=== PATIENT | male | born 1990 ===

== ENCOUNTER 2017-10-12 13:30 | Observation (INO) | payer OTHER ==
[2017-10-12] MEDS ORDERED: Iohexol 240 (50 ml) PO ONE (14:14)
[2017-10-12] MEDS ORDERED: Sodium Chloride 0.9% 1,000 ML IV STA (14:14)
--- NOTE | 2017-10-12 14:17 | ED PDOC ---
HPI: Abdomen Time Seen by Provider: 10/12/17 13:37 Chief Complaint (Nursing): Abdominal Pain Chief Complaint (Provider): abdominal pain and fever History Per: Patient History/Exam Limitations: no limitations Onset/Duration Of Symptoms: Days (x4) Current Symptoms Are (Timing): Constant Additional Complaint(s): Olvin Bell, a 26 year old male patient presents to the Emergency Department complaining of constant abdominal pain and body aches onset four days ago. Patient reports did not take any pain medication. Denies shortness of breath, nausea, vomiting, diarrhea, testicular pain, but notes dysuria. PMD: NO FAMILY PROVIDER Past Medical History Reviewed: Historical Data, Nursing Documentation, Vital Signs Vital Signs: Last Vital Signs Temp 98.0 F 10/12/17 13:54 Pulse 121 H 10/12/17 13:54 Resp 16 10/12/17 13:54 BP 145/76 10/12/17 13:54 Pulse Ox 100 10/12/17 17:52 - Medical History PMH: No Chronic Diseases - Surgical History Surgical History: No Surg Hx - Family History Family History: States: Unknown Family Hx - Allergies Allergies/Adverse Reactions: Allergies Allergy/AdvReac Type Severity Reaction Status Date / Time No Known Allergies Allergy Verified 10/12/17 13:53 Review of Systems ROS Statement: Except As Marked, All Systems Reviewed And Found Negative Constitutional: Positive for: Fever, Other (body aches) Cardiovascular: Negative for: Chest Pain Respiratory: Negative for: Shortness of Breath Gastrointestinal: Positive for: Abdominal Pain. Negative for: Nausea, Vomiting , Diarrhea Genitourinary Male: Positive for: Dysuria Physical Exam - Reviewed Nursing Documentation Reviewed: Yes Vital Signs Reviewed: Yes - Physical Exam Appears: Positive for: Well, Non-toxic, No Acute Distress Head Exam: Positive for: ATRAUMATIC, NORMAL INSPECTION, NORMOCEPHALIC Skin: Positive for: Normal Color, Warm, Dry Eye Exam: Positive for: Normal appearance, EOMI, PERRL ENT: Positive for: Normal ENT Inspection Neck: Positive for: Normal, Painless ROM Cardiovascular/Chest: Positive for: Regular Rate, Rhythm. Negative for: Chest Non Tender, Tachycardia Respiratory: Positive for: Normal Breath Sounds. Negative for: Wheezing, Respiratory Distress Gastrointestinal/Abdominal: Positive for: Soft, Tenderness. Negative for: Guarding, Rebound Back: Positive for: Normal Inspection. Negative for: L CVA Tenderness, R CVA Tenderness Extremity: Positive for: Normal ROM. Negative for: Tenderness, Deformity, Swelling Neurologic/Psych: Positive for: Alert, Oriented (x3), Gait - Laboratory Results Result Diagrams: 10/12/17 15:04 10/12/17 15:04 Interpretation Of Abn Labs: 13.3 wbc; 322 wbc - ECG O2 Sat by Pulse Oximetry: 100 (RA) Pulse Ox Interpretation: Normal - CT Scan/US ct Other Rad Studies (CT/US): Read By Radiologist Other Rad Interpretation: pancratitis - Progress ED Course And Treament: 1755: Spoke with Dr. Rice. Will admit. Pancreatitis. Fluids running. LR started. Medical Decision Making Medical Decision Making: Time: 14:14 Initial Plan: --Abd Pelvis PO & IV CT --CMP --Lipase --CBC --Normal Saline 1,000ml IV 1,000mls/hr --Iohexol 50ml PO --Toradol 15mg IVP --Reevaluation Scribe Attestation: Documented by Ashley Patricia, acting as a scribe for Dean Reyes MD Provider Scribe Attestation: All medical record entries made by the Scribe were at my direction and personally dictated by me. I have reviewed the chart and agree that the record accurately reflects my personal performance of the history, physical exam, medical decision making, and the department course for this patient. I have also personally directed, reviewed, and agree with the discharge instructions and disposition. Disposition - Clinical Impression Clinical Impression: Pancreatitis - Patient ED Disposition Is Patient to be Admitted: Yes Counseled Patient/Family Regarding: Studies Performed, Diagnosis - Disposition Disposition Time: 17:30 Condition: FAIR - Pt Status Changed To: Hospital Disposition Of: Observation - POA Present On Arrival: None
[2017-10-12] MEDS ORDERED: Iohexol 240 (50 ml) ONE (14:29)
[2017-10-12 15:13] LABS: BASO # 0.1 K/uL (0.0-0.2); BASO % 0.5 % (0.0-2.0); EOS # 0.2 K/uL (0.0-0.7); EOS % 1.5 % (0.0-4.0); HEMOGLOBIN 14.8 g/dL (12.0-18.0); LYMPH # 1.5 K/uL (1.0-4.3); LYMPH % 10.9 % (20.0-40.0); MEAN CORPUSCULAR HEMOGLOBIN 26.5 pg (27.0-31.0); MEAN CORPUSCULAR HGB CONC 33.9 g/dL (33.0-37.0); MEAN PLATELET VOLUME 8.2 fl (7.2-11.7); MONO # 1.2 K/uL (0.0-0.8); MONO % 8.7 % (0.0-10.0); NEUT # 10.5 K/uL (1.8-7.0); NEUT % 78.4 % (50.0-75.0); RBC 5.58 Mil/uL (4.40-5.90); RED CELL DISTRIBUTION WIDTH 14.2 % (11.5-14.5); WHITE BLOOD COUNT 13.3 K/uL (4.8-10.8)
[2017-10-12 15:22] LABS: ALB/GLOB RATIO 1.2 (1.0-2.1); ALBUMIN 4.7 g/dL (3.5-5.0); ALT/SGPT 36 U/L (21-72); AST/SGOT 23 U/L (17-59); BLOOD UREA NITROGEN 9 mg/dl (9-20); CALCIUM 9.7 mg/dL (8.4-10.2); GFR AFRICAN-AMERICAN > 60; GFR NON-AFRICAN AMERICAN > 60; LIPASE 322 U/L (23-300)
[2017-10-12] MEDS ORDERED: Sodium Chloride 0.9% 50 ML IV ONE (16:46)
[2017-10-12] MEDS ORDERED: Iohexol 300 100 ML IJ ONE (16:46)
--- NOTE | 2017-10-12 17:39 | CT ---
PROCEDURE: CT Abdomen and Pelvis with contrast HISTORY: abd pain COMPARISON: None. TECHNIQUE: Contrast dose: 98 cc Omnipaque 300 Radiation dose: Total exam DLP = 1336.1 mGy-cm. This CT exam was performed using one or more of the following dose reduction techniques: Automated exposure control, adjustment of the mA and/or kV according to patient size, and/or use of iterative reconstruction technique. FINDINGS: LOWER THORAX: Right lower lobe calcified granuloma. Unremarkable. LIVER: Hepatic steatosis. No gross lesion or ductal dilatation. GALLBLADDER AND BILE DUCTS: Unremarkable. PANCREAS: Peripancreatic hazy change and fluid. No gross lesion or ductal dilatation. SPLEEN: Unremarkable. ADRENALS: Unremarkable. No mass. KIDNEYS AND URETERS: Unremarkable. No hydronephrosis. No solid mass. VASCULATURE: Unremarkable. No aortic aneurysm. BOWEL: Unremarkable. No obstruction. No gross mural thickening. APPENDIX: Normal appendix. PERITONEUM: Unremarkable. No free air. LYMPH NODES: Unremarkable. No enlarged lymph nodes. BLADDER: Unremarkable. REPRODUCTIVE: Unremarkable. BONES: No acute fracture. OTHER FINDINGS: None. IMPRESSION: Acute pancreatitis. No evidence of necrosis or organized fluid collection.
[2017-10-12] MEDS: Lactated Ringer's 1,000 ML IV SCH ×2 (18:27→22:50)
[2017-10-12] MEDS ORDERED: Alum-Mag Hydrox-Simethicone Susp (30 mL) PO PRN (18:42)
[2017-10-12 18:52] LABS: BARBITURATES, UR NEGATIVE (NEGATIVE); BENZODIAZEPINES, UR NEGATIVE (NEGATIVE); OPIATES, UR NEGATIVE (NEGATIVE); PHENCYCLIDINE, UR NEGATIVE (NEGATIVE)
--- NOTE | 2017-10-12 18:55 | CP.PCM.HP ---
History of Present Illness - History of Present Illness History of Present Illness: This is a 26 yo male with no significant past medical history who presents to the ED complaining of crampy, dull, severe abdominal pain in the epigastric region radiating to his back. He has never had this pain before. No nausea, vomiting, or diarrhea. No other associated factors. Denies eating anything out of the ordinary. In the ED, the patient was found to have leukocytosis. HD stable but did have tachycardia initially. CT scan shows evidence of acute pancreatitis without evidence of gallstones. Lipase is mildly elevated at 322. No transaminitis or bilirubin elevation. Patient denies recent ETOH usage or drug usage. The patient is to be placed on observation overnight for further workup and management of acute pancreatitis. Present on Admission - Present on Admission Any Indicators Present on Admission: No Review of Systems - Review of Systems Review of Systems: A 12 point ROS was conducted and found to be negative other than what was mentioned in the HPI. Past Patient History - Infectious Disease Hx of Infectious Diseases: None - Past Social History Smoking Status: Never Smoked Alcohol: Occasional Drugs: Denies - PSYCHIATRIC Hx Substance Use: No Meds Allergies/Adverse Reactions: Allergies Allergy/AdvReac Type Severity Reaction Status Date / Time No Known Allergies Allergy Verified 10/12/17 13:53 Physical Exam - Additional Findings Additional findings: Physical exam: Constitutional- cooperative, awake, alert Head- NCAT, PERRL Eye- PERRL, EOMI ENT- normal exam, MMM. Neck- normal inspection, supple, no JVD Respiratory- CTAB, no wheezes rales rhonchi Cardiovascular- RRR, +S1, +S2 no MRG GI/Abdominal-obese, tender to palpation, normal bowel sounds, soft, no mass, no hsm Skin- warm, dry Extremities Exam- normal capillary refill, normal inspection Neurological Exam- alert, awake, oriented Psych- normal mood, normal affect Results - Vital Signs Recent Vital Signs: Last Vital Signs Temp 98.0 F 10/12/17 13:54 Pulse 121 H 10/12/17 13:54 Resp 16 10/12/17 13:54 BP 145/76 10/12/17 13:54 Pulse Ox 100 10/12/17 17:56 - Labs Result Diagrams: 10/12/17 15:04 10/12/17 15:04 Labs: Laboratory Results - last 24 hr 10/12/17 10/12/17 10/12/17 15:04 15:04 18:17 WBC 13.3 H RBC 5.58 Hgb 14.8 Hct 43.5 MCV 78.0 L MCH 26.5 L MCHC 33.9 RDW 14.2 Plt Count 230 MPV 8.2 Neut % (Auto) 78.4 H Lymph % (Auto) 10.9 L [place] % (Auto) 8.7 Eos % (Auto) 1.5 Baso % (Auto) 0.5 Neut # (Auto) 10.5 H Lymph # (Auto) 1.5 [place] # (Auto) 1.2 H Eos # (Auto) 0.2 Baso # (Auto) 0.1 Sodium 141 Potassium 4.0 Chloride 102 Carbon Dioxide 26 Anion Gap 17 BUN 9 Creatinine 0.9 Est GFR ( Amer) > 60 Est GFR (Non-Af Amer) > 60 Random Glucose 95 Calcium 9.7 Total Bilirubin 1.3 AST 23 ALT 36 Alkaline Phosphatase 97 Total Protein 8.5 H Albumin 4.7 Globulin 3.8 Albumin/Globulin Ratio 1.2 Lipase 322 H Urine Opiates Screen Urine Methadone Screen Ur Barbiturates Screen Ur Phencyclidine Scrn Ur Amphetamines Screen U Benzodiazepines Scrn U Oth Cocaine Metabols U Cannabinoids Screen Alcohol, Quantitative < 10 10/12/17 18:17 WBC RBC Hgb Hct MCV MCH MCHC RDW Plt Count MPV Neut % (Auto) Lymph % (Auto) [place] % (Auto) Eos % (Auto) Baso % (Auto) Neut # (Auto) Lymph # (Auto) [place] # (Auto) Eos # (Auto) Baso # (Auto) Sodium Potassium Chloride Carbon Dioxide Anion Gap BUN Creatinine Est GFR ( Amer) Est GFR (Non-Af Amer) Random Glucose Calcium Total Bilirubin AST ALT Alkaline Phosphatase Total Protein Albumin Globulin Albumin/Globulin Ratio Lipase Urine Opiates Screen Negative Urine Methadone Screen Negative Ur Barbiturates Screen Negative Ur Phencyclidine Scrn Negative Ur Amphetamines Screen Negative U Benzodiazepines Scrn Negative U Oth Cocaine Metabols Negative U Cannabinoids Screen Negative Alcohol, Quantitative Assessment & Plan - Assessment and Plan (Free Text) Plan: ASSESSMENT/PLAN 26 yo male admitted for acute pancreatitis of unknown etiology, ddx: ETOH, hyperlipidemia; pt denies recent ETOH use or recent trauma. No evidence of gallstones on CT scan. On no medications. + Leukocytosis - Admit to med/surg - 1 L NS given in ED, continue LR overnight at 200 cc/hour - NPO status with bland diet to be advanced tomorrow AM. - Pain mgmt with Tylenol and Toradol sliding scale - Repeat Labs in AM - Lipid profile - HGA1C - Follow up alcohol level/urine toxicology screen - likely discharge tomorrow if he tolerates his diet without
[2017-10-13] MEDS: Lactated Ringer's 1,000 ML IV SCH (06:00)
[2017-10-13 07:03] LABS: MEAN CELL VOLUME 79.7 fl (80.0-94.0); MEAN CORPUSCULAR HEMOGLOBIN 26.2 pg (27.0-31.0); MEAN CORPUSCULAR HGB CONC 32.9 g/dL (33.0-37.0); RBC 4.58 Mil/uL (4.40-5.90); RED CELL DISTRIBUTION WIDTH 13.9 % (11.5-14.5); WHITE BLOOD COUNT 9.5 K/uL (4.8-10.8)
[2017-10-13 07:23] LABS: BLOOD UREA NITROGEN 9 mg/dl (9-20); CALCIUM 8.8 mg/dL (8.4-10.2); GFR AFRICAN-AMERICAN > 60; GFR NON-AFRICAN AMERICAN > 60
[2017-10-13 08:20] VITALS: BP 115/62; PULSE 68; RESP 20; TEMP 98.1; O2SAT 98
[2017-10-13 08:29] LABS: HDL CHOLESTEROL 20 MG/DL (30-70)
[2017-10-13 08:40] LABS: LDL CHOLESTEROL 31 mg/dL (0-129)
--- NOTE | 2017-10-13 08:40 | CP.PCM.DIS ---
Provider - Provider Date of Admission: 10/12/17 17:54 Attending physician: Tello Rice DO Primary care physician: none Time Spent in preparation of Discharge (in minutes): 15 Hospital Course - Lab Results Lab Results: Most Recent Lab Values WBC 9.5 K/uL (4.8-10.8) 10/13/17 05:30 RBC 4.58 Mil/uL (4.40-5.90) 10/13/17 05:30 Hgb 12.0 g/dL (12.0-18.0) D 10/13/17 05:30 Hct 36.5 % (35.0-51.0) 10/13/17 05:30 MCV 79.7 fl (80.0-94.0) L 10/13/17 05:30 MCH 26.2 pg (27.0-31.0) L 10/13/17 05:30 MCHC 32.9 g/dL (33.0-37.0) L 10/13/17 05:30 RDW 13.9 % (11.5-14.5) 10/13/17 05:30 Plt Count 180 K/uL (130-400) 10/13/17 05:30 MPV 8.2 fl (7.2-11.7) 10/12/17 15:04 Neut % (Auto) 78.4 % (50.0-75.0) H 10/12/17 15:04 Lymph % (Auto) 10.9 % (20.0-40.0) L 10/12/17 15:04 [place] % (Auto) 8.7 % (0.0-10.0) 10/12/17 15:04 Eos % (Auto) 1.5 % (0.0-4.0) 10/12/17 15:04 Baso % (Auto) 0.5 % (0.0-2.0) 10/12/17 15:04 Neut # (Auto) 10.5 K/uL (1.8-7.0) H 10/12/17 15:04 Lymph # (Auto) 1.5 K/uL (1.0-4.3) 10/12/17 15:04 [place] # (Auto) 1.2 K/uL (0.0-0.8) H 10/12/17 15:04 Eos # (Auto) 0.2 K/uL (0.0-0.7) 10/12/17 15:04 Baso # (Auto) 0.1 K/uL (0.0-0.2) 10/12/17 15:04 Sodium 139 mmol/l (132-148) 10/13/17 05:30 Potassium 3.9 MMOL/L (3.6-5.0) 10/13/17 05:30 Chloride 101 mmol/L (98-107) 10/13/17 05:30 Carbon Dioxide 31 mmol/L (22-30) H 10/13/17 05:30 Anion Gap 11 (10-20) 10/13/17 05:30 BUN 9 mg/dl (9-20) 10/13/17 05:30 Creatinine 0.9 mg/dl (0.8-1.5) 10/13/17 05:30 Est GFR ( Amer) > 60 10/13/17 05:30 Est GFR (Non-Af Amer) > 60 10/13/17 05:30 Random Glucose 104 mg/dL (75-110) 10/13/17 05:30 Calcium 8.8 mg/dL (8.4-10.2) 10/13/17 05:30 Total Bilirubin 1.3 mg/dl (0.2-1.3) 10/12/17 15:04 AST 23 U/L (17-59) 10/12/17 15:04 ALT 36 U/L (21-72) 10/12/17 15:04 Alkaline Phosphatase 97 U/L (38-126) 10/12/17 15:04 Total Protein 8.5 G/DL (6.3-8.2) H 10/12/17 15:04 Albumin 4.7 g/dL (3.5-5.0) 10/12/17 15:04 Globulin 3.8 gm/dL (2.2-3.9) 10/12/17 15:04 Albumin/Globulin Ratio 1.2 (1.0-2.1) 10/12/17 15:04 Triglycerides 553 mg/DL (0-149) H 10/13/17 05:30 Cholesterol 172 mg/dL (0-199) 10/13/17 05:30 HDL Cholesterol 20 MG/DL (30-70) L 10/13/17 05:30 Lipase 107 U/L (23-300) 10/13/17 05:30 Urine Opiates Screen Negative (NEGATIVE) 10/12/17 18:17 Urine Methadone Screen Negative (NEGATIVE) 10/12/17 18:17 Ur Barbiturates Screen Negative (NEGATIVE) 10/12/17 18:17 Ur Phencyclidine Scrn Negative (NEGATIVE) 10/12/17 18:17 Ur Amphetamines Screen Negative (NEGATIVE) 10/12/17 18:17 U Benzodiazepines Scrn Negative (NEGATIVE) 10/12/17 18:17 U Oth Cocaine Metabols Negative (NEGATIVE) 10/12/17 18:17 U Cannabinoids Screen Negative (NEGATIVE) 10/12/17 18:17 Alcohol, Quantitative < 10 mg/dl (0-10) 10/12/17 18:17 - Hospital Course Hospital Course: 26 yo male with no significant past medical history,presented to the ED complaining of crampy, dull, severe abdominal pain in the epigastric region radiating to his back. He has never had this pain before. No nausea, vomiting, or diarrhea. No other associated factors. Denies eating anything out of the ordinary.patient states that this pain started on Saturday ( 6 days ago ) but could not come to hospital because his work. In the ED, found to have leukocytosis 13.3 , lipase 322. CT scan shows evidence of acute pancreatitis without evidence of gallstones. No transaminitis or bilirubin elevation. Patient denies ETOH abuse . His lipid profile was normal,denies any medication usage or drug usage. The patient was placed under observation in med/surg , started on IVF . Clinically patient improved ,pain resolved , tolerating Po intake , lipase normalized and WBC trended down to 9 K. Will discharge patient home in stable conditions Counselled to avoid ETOH use Return to hospital if symptoms worsen Dx Acute pancreatitis of unclear etiology Discharge Exam - Head Exam Head Exam: ATRAUMATIC, NORMAL INSPECTION, NORMOCEPHALIC - Eye Exam Eye Exam: EOMI, Normal appearance, PERRL Pupil Exam: NORMAL ACCOMODATION - ENT Exam ENT Exam: Mucous Membranes Moist, Normal Exam - Neck Exam Neck exam: Full Rom, Normal Inspection - Respiratory Exam Respiratory Exam: Clear to PA & Lateral, NORMAL BREATHING PATTERN. absent: Rales, Rhonchi, Wheezes - Cardiovascular Exam Cardiovascular Exam: REGULAR RHYTHM, RRR, +S1, +S2. absent: JVD - GI/Abdominal Exam GI & Abdominal Exam: Normal Bowel Sounds, Soft. absent: Distended, Guarding, Rebound, Tenderness - Rectal Exam Rectal Exam: Deferred - Extremities Exam Extremities exam: full ROM, normal inspection, pedal pulses present - Back Exam Back exam: NORMAL INSPECTION - Neurological Exam Neurological exam: Alert, CN II-XII Intact, Oriented x3, Reflexes Normal - Psychiatric Exam Psychiatric exam: Normal Affect, Normal Mood - Skin Skin Exam: Dry, Intact, Normal Color, Warm Discharge Plan - Follow Up Plan Condition: STABLE Disposition: HOME/ ROUTINE Patient education suggested?: Yes Instructions: Pancreatitis (DC) Referrals: [facility] [place] [Outside]
== END 2017-10-13 11:00 | disposition home or self-care (01) ==
LOC: H.ER 13:30 → H.ERHOLD 17:54 → H.MEDSURG1 20:18
PROVIDERS: ADMIT Internal Medicine; ATTEND Internal Medicine
DX: K85.90 Acute pancreatitis without necrosis or infection, unspecified (principal)
CPT/HCPCS: 36415; 74177; 80048; 80053; 80061; 80320; 80324; 80345; 80346; 80349; 80353; 80358; 80361; 83690; 83992; 85025; 85027; 96374; 99283; G0378; J1885; J7040; J7120; Q9966; Q9967

== ENCOUNTER 2017-12-03 11:07 | Emergency (ER) | payer SELFPAY, OTHER ==
[2017-12-03 11:19] VITALS: BP 122/66; PULSE 98
[2017-12-03 12:01] VITALS: RESP 18; TEMP 96; O2SAT 99
--- NOTE | 2017-12-03 12:27 | ED PDOC ---
Lower Extremity Pain/Injury Time Seen by Provider: 12/03/17 12:07 Chief Complaint (Nursing): Lower Extremity Problem/Injury History/Exam Limitations: no limitations Onset/Duration Of Symptoms: Days (x 3) Current Symptoms Are (Timing): Still Present Additional Complaint(s): Mr. Bah is a 27 year old male, with a history of gout and pancreatitis, who presents to the ED for bilateral plantar foot pain x 3 days. No injuries or falls. Does not play sports. Patient reports pain is intermittent or when he bears weight. PMD: No Family Provider Past Medical History Reviewed: Historical Data, Nursing Documentation, Vital Signs Vital Signs: Last Vital Signs Temp 96.0 F L 12/03/17 11:59 Pulse 98 H 12/03/17 11:59 Resp 18 12/03/17 11:59 BP 122/66 12/03/17 11:59 Pulse Ox 99 12/03/17 11:59 - Medical History PMH: Pancreatitis Denies: Chronic Kidney Disease Other PMH: Gout - Surgical History Other surgeries: knee toe surgery - Family History Family History: States: Unknown Family Hx - Social History Alcohol: Occasional - Home Medications Home Medications: Ambulatory Orders Medication Instructions Recorded No Known Home Med 10/12/17 - Allergies Allergies/Adverse Reactions: Allergies Allergy/AdvReac Type Severity Reaction Status Date / Time No Known Allergies Allergy Verified 10/12/17 13:53 Review of Systems ROS Statement: Except As Marked, All Systems Reviewed And Found Negative Musculoskeletal: Positive for: Foot Pain (bilateral plantar foot pain) Physical Exam - Reviewed Nursing Documentation Reviewed: Yes Vital Signs Reviewed: Yes - Physical Exam Extremity: Positive for: Normal ROM (Full ROM ), Capillary Refill (less than 2 seconds). Negative for: Calf Tenderness, Deformity, Swelling - ECG O2 Sat by Pulse Oximetry: 99 (RA) Pulse Ox Interpretation: Normal Medical Decision Making Medical Decision Making: Time: 12:29 Impression(s): Foot Pain, Early gout flare up vs. Sprain vs. Plantar Fasciitis Plan: - Foot X-Ray Time: 13:06 Foot X-Ray FINDINGS: BONES: Right Foot: No acute fracture. Left Foot: No acute fracture. JOINTS: Right Foot: Unremarkable. Left Foot: Unremarkable. SOFT TISSUES: Right Foot: Normal. Left Foot: Normal. OTHER FINDINGS: Small inferior plantar calcaneal spurs. IMPRESSION: No demonstrated fracture or dislocation. Bilateral heel spurs. Upon provider evaluation patient is medically stable, and requires no further treatment in the ED at this time. Patient will be discharged and to need follow up with primary doctor in 1-2 days as well as podiatry. Counseling was provided and all questions were answered regarding diagnosis. There is agreement to discharge plan. Return if symptoms persist or worsen. Scribe Attestation: Documented by Tello Mcghee, acting as a scribe for Candida Barreto MD Provider Scribe Attestation: All medical record entries made by the Scribe were at my direction and personally dictated by me. I have reviewed the chart and agree that the record accurately reflects my personal performance of the history, physical exam, medical decision making, and the department course for this patient. I have also personally directed, reviewed, and agree with the discharge instructions and disposition. Disposition - Clinical Impression Clinical Impression: Foot pain, bilateral - Patient ED Disposition Is Patient to be Admitted: No - Disposition Referrals: [facility] [Outside] [facility] [Outside] [facility] [Outside] Disposition: Routine/Home Disposition Time: 15:26 Condition: IMPROVED Additional Instructions: follow up with your primary doctor in 1-2 days as well as podiatry return to the ED with any worsening or concerning symptoms Instructions: Heel Spurs (DC), Foot Sprain (DC) Forms: [employer] (Irish) Print Language: [place]
--- NOTE | 2017-12-03 13:08 | RAD ---
PROCEDURE: Bilateral Feet Radiographs. HISTORY: bilateral foot pain COMPARISON: None. FINDINGS: BONES: Right Foot: No acute fracture. Left Foot: No acute fracture. JOINTS: Right Foot: Unremarkable. Left Foot: Unremarkable. SOFT TISSUES: Right Foot: Normal. Left Foot: Normal. OTHER FINDINGS: Small inferior plantar calcaneal spurs. IMPRESSION: No demonstrated fracture or dislocation. Bilateral heel spurs.
== END 2017-12-03 16:55 | disposition home or self-care (01) ==
LOC: H.ER 11:07
DX: M79.672 Pain in left foot (principal); M79.671 Pain in right foot; M77.31 Calcaneal spur, right foot; M77.32 Calcaneal spur, left foot

== ENCOUNTER 2018-01-21 14:51 | Inpatient (IN) | payer SELFPAY ==
[2018-01-21] MEDS ORDERED: Sodium Chloride 0.9% 1,000 ML IV STA (15:21)
[2018-01-21 15:58] LABS: VENOUS BLOOD GAS BASE EXCESS 6.4 mmol/L (0.0-2.0); VENOUS BLOOD GAS PCO2 45 mmHg (40-60); VENOUS BLOOD GAS PO2 24 mm/Hg (30-55); VENOUS BLOOD PH 7.45 (7.32-7.43)
[2018-01-21] MEDS ORDERED: Dextrose 5%/0.9% NS 1,000 ML IV SCH (16:00)
--- NOTE | 2018-01-21 16:25 | ED PDOC ---
HPI: Abdomen Time Seen by Provider: 01/21/18 15:19 Chief Complaint (Nursing): Abdominal Pain Chief Complaint (Provider): Abdominal Pain History Per: Patient History/Exam Limitations: no limitations Onset/Duration Of Symptoms: Days (x3) Current Symptoms Are (Timing): Constant (and worsening) Additional Complaint(s): 27 year old male presents to the emergency department complaining of diffuse, constant but worsening, abdominal pain. He reports a decreased appetite, nausea , and subjective fever yesterday, but denies diarrhea and urinary symptoms. Patient states that he remembers feeling similarly back in November of this year when he had pancreatitis. Also, the patient notes that three days ago, he consumed ten beers. PMD: [place] Past Medical History Reviewed: Historical Data, Nursing Documentation, Vital Signs Vital Signs: Last Vital Signs Temp 98.8 F 01/21/18 21:12 Pulse 92 H 01/21/18 21:12 Resp 16 01/21/18 21:12 BP 131/81 01/21/18 21:12 Pulse Ox 98 01/21/18 21:12 - Medical History PMH: Pancreatitis Denies: Chronic Kidney Disease - Surgical History Surgical History: No Surg Hx - Family History Family History: States: CAD - Social History Current smoker - smoking cessation education provided: Yes (cigars occasionally) Alcohol: Occasional Drugs: Denies - Home Medications Home Medications: Ambulatory Orders Medication Instructions Recorded Unobtainable 01/21/18 - Allergies Allergies/Adverse Reactions: Allergies Allergy/AdvReac Type Severity Reaction Status Date / Time No Known Allergies Allergy Verified 10/12/17 13:53 Review of Systems ROS Statement: Except As Marked, All Systems Reviewed And Found Negative Constitutional: Positive for: Fever (subjective from yesterday), Other Gastrointestinal: Positive for: Nausea, Abdominal Pain (diffuse, constant and worsening), Other (decreased appetite). Negative for: Diarrhea Genitourinary Male: Negative for: Dysuria, Frequency, Incontinence Physical Exam - Reviewed Nursing Documentation Reviewed: Yes Vital Signs Reviewed: Yes - Physical Exam Appears: Positive for: In Acute Distress (mild painiful) Head Exam: Positive for: ATRAUMATIC, NORMOCEPHALIC Skin: Positive for: Warm, Dry ENT: Positive for: Pharynx Is (clear), Other (tacky mucous membranes) Neck: Positive for: Painless ROM, Supple Cardiovascular/Chest: Positive for: Regular Rate, Rhythm. Negative for: Murmur Respiratory: Positive for: Normal Breath Sounds. Negative for: Respiratory Distress Gastrointestinal/Abdominal: Positive for: Soft, Tenderness (diffuse tenderness to palpation). Negative for: Mass, Guarding, Rebound Back: Positive for: Normal Inspection. Negative for: Decreased ROM Extremity: Positive for: Normal ROM. Negative for: Deformity Lymphatic: Negative for: Adenopathy Neurologic/Psych: Positive for: Alert. Negative for: Motor/Sensory Deficits - Laboratory Results Result Diagrams: 01/21/18 16:11 01/21/18 16:11 - ECG O2 Sat by Pulse Oximetry: 97 (RA) Pulse Ox Interpretation: Normal Medical Decision Making Medical Decision Making: Time: 15:19 Initial Impression: abdominal pain DDx includes but is not limited to: pancreatitis, gastritis, colitis, dehydration Initial Plan: --Type and Screen --VBG --Alcohol Serum --Amylase --CMP --Drug Screen --LDH --Lipase --Magnesium --Phosphorus --ED Urine dipstick --CBC with differential --PT / PTT --Dextrose 1000ml --Morphine 4mg IVP --Sodium Chloride 0.9% 1000ml IV --Blood Culture --Abdomen Complete US 15:51 Urine sample showed trace ketones, small amounts of blood, and small amounts of protein 17:40 US Abd FINDINGS: LIVER: GALLBLADDER: COMMON BILE DUCT: PACREAS: RIGHT KIDNEY: LEFT KIDNEY: Measures 5.7 x 6.1 x 11.9 cm. Normal echogenicity. No calculus, mass, or hydronephrosis SPLEEN: Normal size AORTA: No aneurysmal dilation IVC: Unremarkable OTHER FINDINGS: None IMPRESSION: No acute findings related to / accounting for the clinical presentation Additional benign and / or incidental findings described above No significant interval change compared to the prior examination(s) 18:45 Labs demonstrate pancreatitis and mild elevation of bilirubin. Discussed with family practice resident who came down to see patient. Patient will be hospitalized for pancreatitis, abdominal pain, and high triglycerides Scribe Attestation: Documented by Fatimah Romero, acting as a scribe for Ann Grove MD Provider Scribe Attestation: All medical entries made by the Scribe were at my direction and personally dictated by me. I have reviewed the chart and agree that the record accurately reflects my personal performance of the history, physical exam, medical decision making, and the department course for this patient. I have also personally directed, reviewed, and agree with the discharge instructions and disposition. Disposition - Clinical Impression Clinical Impression: Abdominal pain, Pancreatitis, High blood triglycerides - Disposition Disposition Time: 18:00 Condition: FAIR - Pt Status Changed To: Hospital Disposition Of: Observation - POA Present On Arrival: None
[2018-01-21 16:32] LABS: BARBITURATES, UR NEGATIVE (NEGATIVE); BENZODIAZEPINES, UR NEGATIVE (NEGATIVE); OPIATES, UR NEGATIVE (NEGATIVE); PHENCYCLIDINE, UR NEGATIVE (NEGATIVE)
[2018-01-21 16:34] LABS: BASO # 0.1 K/uL (0.0-0.2); BASO % 0.6 % (0.0-2.0); EOS # 0.1 K/uL (0.0-0.7); EOS % 0.7 % (0.0-4.0); HEMOGLOBIN 15.8 g/dL (12.0-18.0); LYMPH # 1.2 K/uL (1.0-4.3); LYMPH % 11.9 % (20.0-40.0); MEAN CELL VOLUME 77.2 fl (80.0-94.0); MEAN CORPUSCULAR HEMOGLOBIN 27.6 pg (27.0-31.0); MEAN CORPUSCULAR HGB CONC 35.8 g/dL (33.0-37.0); MEAN PLATELET VOLUME 8.3 fl (7.2-11.7); MONO # 0.7 K/uL (0.0-0.8); MONO % 7.3 % (0.0-10.0); NEUT # 7.8 K/uL (1.8-7.0); NEUT % 79.5 % (50.0-75.0); NRBC % 0.4 % (0.0-0.0); RBC 5.71 Mil/uL (4.40-5.90); RED CELL DISTRIBUTION WIDTH 15.6 % (11.5-14.5); WHITE BLOOD COUNT 9.8 K/uL (4.8-10.8)
[2018-01-21 16:38] LABS: PARTIAL THROMBOPLASTIN TIME 33.6 Seconds (25.6-37.1); PROTHROMBIN TIME 11.3 Seconds (9.8-13.1)
[2018-01-21 17:04] LABS: CALCIUM 8.5 mg/dL (8.4-10.2); GFR AFRICAN-AMERICAN > 60; GFR NON-AFRICAN AMERICAN > 60
[2018-01-21 17:27] LABS: LIPASE 355 U/L (23-300)
[2018-01-21 17:37] LABS: ALB/GLOB RATIO 0.9 (1.0-2.1); ALBUMIN 4.1 g/dL (3.5-5.0); ALT/SGPT 35 U/L (21-72); AMYLASE 78 U/L (30-110); AST/SGOT 66 U/L (17-59); BLOOD UREA NITROGEN 13 mg/dl (9-20)
--- NOTE | 2018-01-21 17:41 | US ---
HISTORY: RUQ pain h/o pancreatitis COMPARISON: 01/04/2018 abdominal ultrasound TECHNIQUE: Sonographic evaluation of the abdomen. FINDINGS: LIVER: Measures 18.3 cm. Hepatopedal blood flow. Fatty infiltration manifest ultrasonographically as increased echogenicity of the liver parenchyma. No mass. No intrahepatic bile duct dilatation. GALLBLADDER: Gallstones are not identified. Stable echogenic focus without shadowing 5 x 9 mm likely gallbladder polyp. COMMON BILE DUCT: Measures 3.8 mm. No stones. No dilatation. PANCREAS: Unremarkable as visualized. No mass. No ductal dilatation. RIGHT KIDNEY: Measures 5.2 x 5.3 x 10.9cm. Normal echogenicity. No calculus, mass, or hydronephrosis. LEFT KIDNEY: Measures 5.7 x 6.1 x 11.9cm. Normal echogenicity. No calculus, mass, or hydronephrosis. SPLEEN: Normal in size and contour. No mass. AORTA: No aneurysmal dilatation. IVC: Unremarkable. OTHER FINDINGS: None. IMPRESSION: No acute findings related to/accounting for the clinical presentation. Additional benign and/or incidental findings described above. No significant interval change compared to the prior examination(s).
--- NOTE | 2018-01-21 18:56 | CP.PCM.HP ---
History of Present Illness - History of Present Illness History of Present Illness: Hx taken from patient and medical records Full code PMD: Dr Bear([facility]) 27 y/o M with PMhx of hypertriglyceridemia was sent from clinic today with c/o abd pain for 3 days associated with nausea. Patient had episode of acute pancreatitis on 10/2017 and outpatient triglycerides level 1 month ago =1770. Patient is not on any medication therapy at this time and admits not being compliant with diet. Pain started 3 days ago, diffuse, no radiation, intermittent, but worse since Yesterday. Admit nausea at times. Denies vomiting , diarrhea, changes in urination, fever. Patient has no other complains. Denies hx of ETOH abuse and patient is not taking any medications at this time. ED course CBC unremarkable CMP: AST 66 Lpase: 355 LDH: 1205 UTox neg. Abd US: No acute findings related to / accounting for the clinical presentation. No significant interval change compared to the prior examination(s ) (Please see full report) NS 1L bolus MOrphine 4mg IV once Protonix 40 mg once PMHx: Hypertriglyceridemia FHx: Hyperlipidemia, DM SHx: Social ETOH and Tobacco. Denies drugs NKDA Present on Admission - Present on Admission Any Indicators Present on Admission: No Review of Systems - Review of Systems All systems: reviewed and no additional remarkable complaints except (Those noted on HPI) Past Patient History - Infectious Disease Hx of Infectious Diseases: None - Past Medical History & Family History Past Medical History?: No - Past Social History Alcohol: Occasional Drugs: Denies - CARDIAC Hx Cardiac Disorders: No - PULMONARY Hx Respiratory Disorders: No - NEUROLOGICAL Hx Neurological Disorder: No - HEENT Hx HEENT Problems: No - RENAL Hx Chronic Kidney Disease: No - ENDOCRINE/METABOLIC Hx Endocrine Disorders: No - HEMATOLOGICAL/ONCOLOGICAL Hx Blood Disorders: No - INTEGUMENTARY Hx Dermatological Problems: No - MUSCULOSKELETAL/RHEUMATOLOGICAL Hx Musculoskeletal Disorders: No Hx Falls: No Hx Gout: Yes - GASTROINTESTINAL Hx Pancreatitis: Yes - GENITOURINARY/GYNECOLOGICAL Hx Genitourinary Disorders: No - PSYCHIATRIC Hx Psychophysiologic Disorder: No Hx Substance Use: No - SURGICAL HISTORY Hx Surgeries: Yes Other/Comment: 2004 surgery of left big toe - ANESTHESIA Hx Anesthesia: Yes Hx Anesthesia Reactions: No Hx Malignant Hyperthermia: No Meds Allergies/Adverse Reactions: Allergies Allergy/AdvReac Type Severity Reaction Status Date / Time No Known Allergies Allergy Verified 10/12/17 13:53 Physical Exam - Constitutional Appears: Non-toxic - Head Exam Head Exam: NORMAL INSPECTION - Eye Exam Eye Exam: EOMI, PERRL - ENT Exam ENT Exam: Mucous Membranes Moist - Respiratory Exam Respiratory Exam: Clear to Auscultation Bilateral, NORMAL BREATHING PATTERN. absent: Chest Wall Tenderness, Decreased Breath Sounds, Rales, Rhonchi, Wheezes - Cardiovascular Exam Cardiovascular Exam: REGULAR RHYTHM, +S1, +S2. absent: Gallop - GI/Abdominal Exam GI & Abdominal Exam: Normal Bowel Sounds, Soft, Tenderness (Diffuse.Worse LUQ). absent: Distended, Rebound, Rigid - Extremities Exam Extremities exam: Positive for: normal capillary refill. Negative for: calf tenderness, pedal edema, tenderness - Back Exam Back exam: absent: CVA tenderness (L), CVA tenderness (R) - Neurological Exam Neurological exam: Alert, Normal Gait, Oriented x3 - Psychiatric Exam Psychiatric exam: Normal Affect, Normal Mood - Skin Skin Exam: Normal Color, Warm Results - Vital Signs Recent Vital Signs: Last Vital Signs Temp 99.4 F 01/21/18 14:55 Pulse 100 H 01/21/18 14:55 Resp 20 01/21/18 14:55 BP 137/84 01/21/18 14:55 Pulse Ox 97 01/21/18 16:38 - Labs Result Diagrams: 01/21/18 16:11 01/21/18 16:11 Labs: Laboratory Results - last 24 hr 01/21/18 01/21/18 01/21/18 15:50 15:55 16:06 WBC RBC Hgb Hct MCV MCH MCHC RDW Plt Count MPV Neut % (Auto) Lymph % (Auto) [place] % (Auto) Eos % (Auto) Baso % (Auto) Neut # (Auto) Lymph # (Auto) [place] # (Auto) Eos # (Auto) Baso # (Auto) PT INR APTT pO2 24 L VBG pH 7.45 H VBG pCO2 45 VBG HCO3 28.5 VBG Total CO2 32.7 H VBG O2 Sat (Calc) 49.1 VBG Base Excess 6.4 H VBG Potassium 4.3 Sodium 138.0 Chloride 100.0 Glucose 99 Lactate 1.9 FiO2 21.0 Potassium Carbon Dioxide Anion Gap BUN Creatinine Est GFR ( Amer) Est GFR (Non-Af Amer) Random Glucose Calcium Phosphorus Magnesium Total Bilirubin AST ALT Alkaline Phosphatase Lactate Dehydrogenase Total Protein Albumin Globulin Albumin/Globulin Ratio Amylase Lipase Venous Blood Potassium 4.3 Urine Opiates Screen Negative Urine Methadone Screen Negative Ur Barbiturates Screen Negative Ur Phencyclidine Scrn Negative Ur Amphetamines Screen Negative U Benzodiazepines Scrn Negative U Oth Cocaine Metabols Negative U Cannabinoids Screen Negative Alcohol, Quantitative Blood Type O POSITIVE Antibody Screen Negative BBK History Checked No verified bt 01/21/18 01/21/18 01/21/18 16:11 16:11 16:11 WBC 9.8 RBC 5.71 Hgb 15.8 D Hct 44.1 MCV 77.2 L D MCH 27.6 MCHC 35.8 RDW 15.6 H Plt Count 245 MPV 8.3 Neut % (Auto) 79.5 H Lymph % (Auto) 11.9 L [place] % (Auto) 7.3 Eos % (Auto) 0.7 Baso % (Auto) 0.6 Neut # (Auto) 7.8 H Lymph # (Auto) 1.2 [place] # (Auto) 0.7 Eos # (Auto) 0.1 Baso # (Auto) 0.1 PT 11.3 INR 1.0 APTT 33.6 pO2 VBG pH VBG pCO2 VBG HCO3 VBG Total CO2 VBG O2 Sat (Calc) VBG Base Excess VBG Potassium Sodium 139 Chloride 98 Glucose Lactate FiO2 Potassium 5.2 H Carbon Dioxide 22 Anion Gap 24 H BUN 13 Creatinine 0.7 L Est GFR ( Amer) > 60 Est GFR (Non-Af Amer) > 60 Random Glucose 96 Calcium 8.5 Phosphorus 4.5 Magnesium 1.6 Total Bilirubin 2.1 H AST 66 H D ALT 35 Alkaline Phosphatase 90 Lactate Dehydrogenase 1205 H Total Protein 8.5 H Albumin 4.1 Globulin 4.4 H Albumin/Globulin Ratio 0.9 L Amylase 78 Lipase 355 H Venous Blood Potassium Urine Opiates Screen Urine Methadone Screen Ur Barbiturates Screen Ur Phencyclidine Scrn Ur Amphetamines Screen U Benzodiazepines Scrn U Oth Cocaine Metabols U Cannabinoids Screen Alcohol, Quantitative < 10 Blood Type Antibody Screen BBK History Checked Assessment & Plan - Assessment and Plan (Free Text) Assessment: 27 y/o Mwith Hx of hypertriglyceridemia admitted for pancreatitis Acute pancreatitis 2nd episode of Pancreatitis this year Lipase 355 VS WNL. Lactate 1.9 Slightly elevation of AST and Bili. Alk Phos WNL Poss due to hypertriglyceridemia Triglycerides 1 m/a =1770 No Leukocytosis. Afebrile Abd US: No acute findings related to / accounting for the clinical presentation. No significant interval change compared to the prior examination(s ) Aggressive hydration, pain control NPO for now GI consult Hypertriglyceridemia Chronic, worsening Lipid panel ordered Triglycerides 3565 F/U GI recs Patient will benefit from nursing home use of Statins/Fibrates. Will discuss with morning team DVT prophylaxis Lovenox 40 mg daily
[2018-01-21] MEDS ORDERED: Lactated Ringer's 1,000 ML IV SCH (19:15)
[2018-01-21] MEDS: Sodium Chloride 0.9% 1,000 ML IV SCH (20:00)
[2018-01-21 21:30] LABS: HDL CHOLESTEROL 20 MG/DL (30-70)
[2018-01-21 22:17] LABS: LDL CHOLESTEROL < 30 mg/dL (0-129)
[2018-01-22] MEDS: Sodium Chloride 0.9% 1,000 ML IV SCH (04:21)
[2018-01-22 06:56] LABS: BASO # 0.1 K/uL (0.0-0.2); BASO % 0.6 % (0.0-2.0); EOS # 0.1 K/uL (0.0-0.7); EOS % 1.7 % (0.0-4.0); HEMOGLOBIN 13.2 g/dL (12.0-18.0); LYMPH # 1.4 K/uL (1.0-4.3); MEAN CELL VOLUME 77.6 fl (80.0-94.0); MEAN CORPUSCULAR HEMOGLOBIN 26.9 pg (27.0-31.0); MEAN CORPUSCULAR HGB CONC 34.7 g/dL (33.0-37.0); MEAN PLATELET VOLUME 8.4 fl (7.2-11.7); MONO # 0.9 K/uL (0.0-0.8); MONO % 10.6 % (0.0-10.0); NEUT % 71.1 % (50.0-75.0); NRBC % 0.1 % (0.0-0.0); RBC 4.9 Mil/uL (4.40-5.90); RED CELL DISTRIBUTION WIDTH 15.6 % (11.5-14.5); WHITE BLOOD COUNT 8.4 K/uL (4.8-10.8)
[2018-01-22] MEDS ORDERED: Lactated Ringer's 1,000 ML IV SCH (07:00)
[2018-01-22 07:04] LABS: ALBUMIN 3.7 g/dL (3.5-5.0); GFR AFRICAN-AMERICAN > 60; GFR NON-AFRICAN AMERICAN > 60
[2018-01-22 07:44] LABS: SQUAMOUS EPITHIAL < 1 /hpf (0-5); URINE BILIRUBIN NEGATIVE (NEGATIVE); URINE BLOOD SMALL (NEGATIVE); URINE CLARITY CLEAR (Clear); URINE COLOR YELLOW (YELLOW); URINE GLUCOSE (UA) NEG (Normal); URINE LEUKOCYTE ESTERASE NEG Leu/uL (Negative); URINE PROTEIN NEGATIVE (NEGATIVE); URINE UROBILINOGEN 0.2-1.0 mg/dL (0.2-1.0)
--- NOTE | 2018-01-22 08:12 | CP.PCM.PN ---
Subjective - Date & Time of Evaluation Date of Evaluation: 01/22/18 Time of Evaluation: 08:20 - Subjective Subjective: Patient seen and examined this morning. Patient states his abdominal pain has improved since the admission. Denies any nausea, vomiting, fever, chills, headache, dizziness, chest pain or dyspnea. Pt is on NPO and IVFs. Objective - Vital Signs/Intake and Output Vital Signs (last 24 hours): Temp Pulse Resp BP Pulse Ox 97.8 F 101 H 20 145/80 96 01/22/18 00:32 01/22/18 00:32 01/22/18 00:32 01/22/18 00:32 01/22/18 00:32 - Medications Medications: Current Medications Enoxaparin Sodium (Lovenox) 40 mg SC QD6 ANNA PRN Reason: Protocol Lactated Ringer's (Lactated Ringer's) 1,000 mls @ 200 mls/hr IV .Q5H ANNA Ketorolac Tromethamine (Toradol) 15 mg IVP Q6 PRN PRN Reason: Pain, moderate (4-7) Ketorolac Tromethamine (Toradol) 30 mg IVP Q6 PRN PRN Reason: Pain, severe (8-10) Ondansetron HCl (Zofran Odt) 4 mg PO Q8H PRN PRN Reason: Nausea/Vomiting - Labs Labs: 01/22/18 05:45 01/22/18 05:45 PT 11.3 Seconds (9.8-13.1) 01/21/18 16:11 INR 1.0 (0.9-1.2) 01/21/18 16:11 APTT 33.6 Seconds (25.6-37.1) 01/21/18 16:11 - Additional Findings Additional findings: - Constitutional Appears: Non-toxic, no acute distress - Head Exam Head Exam: NORMAL INSPECTION - Eye Exam Eye Exam: EOMI, no icterus - ENT Exam ENT Exam: Mucous Membranes Moist - Respiratory Exam Respiratory Exam: Clear to Auscultation Bilateral, NORMAL BREATHING PATTERN. absent: Rales, Rhonchi, Wheezes - Cardiovascular Exam Cardiovascular Exam: REGULAR RHYTHM, +S1, +S2. - GI/Abdominal Exam GI & Abdominal Exam: Normal Bowel Sounds, Soft, Moderate epigastric tenderness. absent: Distended, Rebound, Rigid or guarding - Extremities Exam Extremities exam: Positive for: normal capillary refill. Negative for: calf tenderness, pedal edema, tenderness - Back Exam Back exam: absent: CVA tenderness (L), CVA tenderness (R) - Neurological Exam Neurological exam: Alert, Normal Gait, Oriented x3 - Psychiatric Exam Psychiatric exam: Normal Affect, Normal Mood - Skin Skin Exam: Normal Color, Warm Assessment and Plan - Assessment and Plan (Free Text) Assessment: 27 y/o male with Hx of hypertriglyceridemia admitted for acute early pancreatitis Acute early pancreatitis -likely multifactorial (hypertriglyceridemia +EtoH use) -2nd episode of Pancreatitis this year -Lipase 355 -VS WNL. afebrile.no leukocytosisl. Lactate 1.9 -Triglycerides on admission: 08041 ( one month ago 1770) -Abd US: No acute findings related to / accounting for the clinical presentation. 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
[2018-01-22 08:46] LABS: ALT/SGPT 39 U/L (21-72); AST/SGOT 33 U/L (17-59); BLOOD UREA NITROGEN 11 mg/dl (9-20); CALCIUM 8.6 mg/dL (8.4-10.2)
[2018-01-22] MEDS ORDERED: Glucagon Recombinant 1 mg Inj IM PRN (09:06)
[2018-01-22] MEDS ORDERED: Dextrose 50% SYRINGE Inj (50 ml) IV PRN (09:06)
[2018-01-22] MEDS: Dextrose 5%/0.45% NS 1,000 ML IV SCH ×3 (09:34→21:47)
--- NOTE | 2018-01-22 10:06 | CP.PCM.CON ---
<Black Philip - Last Filed: 01/22/18 10:11> History of Present Illness - History of Present Illness History of Present Illness: PGY5 GI Fellow Consult Note Patient is a 27yo male with PMHx significant for acute pancreatitis in October this year who presented to the hospital with abdominal pain. Patient attended a democrat on Saturday evening where he drank in excess (~10 beers) and smoked cigarettes. Saturday, he developed dull, cramping, periumbilical abdominal pain with intermittent nausea and decreased appetite. Despite symptoms persisting, pain was tolerable until Saturday evening into Saturday morning when pain intensified greatly. As he could no longer bear pain at home, he came to the ED for further evaluation. On admission, patient was noted to have a slightly elevated lipase and significantly elevate triglyceride level (3565). Since admission, patient has been treated for acute pancreatitis with IVF and has been maintained NPO. Currently, he states pain has lessened significantly. Denies any nausea, fever, chills, weight loss, change in bowel habits. Denies any OTC or prescription medication. 12 system ROS performed and negative except where stated. PMHx: See HPI PSHx: Discussed with patient and he denies any surgical history FHx: Mother/Father - DM, dyslipidemia Social: Occasional EtOH/tobacco use, denies illicit drug use Endo: Denies any prior endoscopic evaluations Past Patient History - Infectious Disease Hx of Infectious Diseases: None - Past Medical History & Family History Past Medical History?: No - Past Social History Alcohol: Occasional Drugs: Denies - CARDIAC Other/Comment: hypertriglyceridemia - PULMONARY Hx Respiratory Disorders: No - NEUROLOGICAL Hx Neurological Disorder: No - HEENT Hx HEENT Problems: No - RENAL Hx Chronic Kidney Disease: No - ENDOCRINE/METABOLIC Hx Endocrine Disorders: No - HEMATOLOGICAL/ONCOLOGICAL Hx Blood Disorders: No Hx AIDS: No Hx Human Immunodeficiency Virus (HIV): No - INTEGUMENTARY Hx Dermatological Problems: No - MUSCULOSKELETAL/RHEUMATOLOGICAL Hx Musculoskeletal Disorders: No Hx Falls: No - GASTROINTESTINAL Hx Pancreatitis: Yes - GENITOURINARY/GYNECOLOGICAL Hx Genitourinary Disorders: No - PSYCHIATRIC Hx Psychophysiologic Disorder: No Hx Substance Use: No - SURGICAL HISTORY Hx Surgeries: Yes Other/Comment: 2004 surgery of left big toe - ANESTHESIA Hx Anesthesia: Yes Hx Anesthesia Reactions: No Hx Malignant Hyperthermia: No Meds Allergies/Adverse Reactions: Allergies Allergy/AdvReac Type Severity Reaction Status Date / Time No Known Allergies Allergy Verified 10/12/17 13:53 - Medications Medications: Current Medications Dextrose (Dextrose 50% Inj) 0 ml IV STAT PRN; Protocol PRN Reason: Hypoglycemia Protocol Dextrose (Glutose 15) 0 gm PO ONCE PRN; Protocol PRN Reason: Hypoglycemia Protocol Enoxaparin Sodium (Lovenox) 40 mg SC QD6 ANNA PRN Reason: Protocol Glucagon (Glucagen Diagnostic Kit) 0 mg IM STAT PRN; Protocol PRN Reason: Hypoglycemia Protocol Lactated Ringer's (Lactated Ringer's) 1,000 mls @ 200 mls/hr IV .Q5H ANNA Dextrose/Sodium Chloride (Dextrose 5%/0.45% Ns 1000 Ml) 1,000 mls @ 200 mls/hr IV .Q5H ANNA Stop: 01/23/18 09:07 Last Admin: 01/22/18 09:34 Dose: 200 mls/hr Insulin Human Regular 100 (units/ Sodium Chloride) 101 mls @ 10.1 mls/hr IV .Q10H ANNA; 10 UNITS/HR PRN Reason: Protocol Ketorolac Tromethamine (Toradol) 15 mg IVP Q6 PRN PRN Reason: Pain, moderate (4-7) Ketorolac Tromethamine (Toradol) 30 mg IVP Q6 PRN PRN Reason: Pain, severe (8-10) Ondansetron HCl (Zofran Odt) 4 mg PO Q8H PRN PRN Reason: Nausea/Vomiting Physical Exam - Constitutional Appears: Non-toxic, No Acute Distress - Eye Exam Eye Exam: EOMI, PERRL - ENT Exam ENT Exam: Mucous Membranes Moist - Respiratory Exam Respiratory Exam: Clear to Auscultation Bilateral. absent: Rales, Rhonchi, Wheezes - Cardiovascular Exam Cardiovascular Exam: RRR, +S1, +S2 - GI/Abdominal Exam GI & Abdominal Exam: Normal Bowel Sounds, Soft, Tenderness (epigastric, with deep palpation). absent: Distended, Firm, Guarding, Organomegaly, Rigid - Extremities Exam Extremities exam: Positive for: normal inspection. Negative for: pedal edema - Neurological Exam Neurological exam: Alert, Oriented x3 - Psychiatric Exam Psychiatric exam: Normal Affect, Normal Mood - Skin Skin Exam: Dry, Warm Results - Vital Signs Recent Vital Signs: Last Vital Signs Temp 98.2 F 01/22/18 08:40 Pulse 93 H 01/22/18 08:40 Resp 18 01/22/18 08:40 BP 133/74 01/22/18 08:40 Pulse Ox 97 01/22/18 08:40 - Labs Result Diagrams: 01/22/18 05:45 01/22/18 05:45 Labs: Laboratory Results - last 24 hr 01/21/18 01/21/18 01/21/18 15:50 15:55 16:06 WBC RBC Hgb Hct MCV MCH MCHC RDW Plt Count MPV Neut % (Auto) Lymph % (Auto) [place] % (Auto) Eos % (Auto) Baso % (Auto) Neut # (Auto) Lymph # (Auto) [place] # (Auto) Eos # (Auto) Baso # (Auto) PT INR APTT pO2 24 L VBG pH 7.45 H VBG pCO2 45 VBG HCO3 28.5 VBG Total CO2 32.7 H VBG O2 Sat (Calc) 49.1 VBG Base Excess 6.4 H VBG Potassium 4.3 Sodium 138.0 Chloride 100.0 Glucose 99 Lactate 1.9 FiO2 21.0 Potassium Carbon Dioxide Anion Gap BUN Creatinine Est GFR ( Amer) Est GFR (Non-Af Amer) POC Glucose (mg/dL) Random Glucose Calcium Phosphorus Magnesium Total Bilirubin Direct Bilirubin AST ALT Alkaline Phosphatase Lactate Dehydrogenase Total Protein Albumin Globulin Albumin/Globulin Ratio Triglycerides Cholesterol LDL Cholesterol Direct HDL Cholesterol Amylase Lipase Venous Blood Potassium 4.3 Urine Color Urine Clarity Urine pH Ur Specific [place] Urine Protein Urine Glucose (UA) Urine Ketones Urine Blood Urine Nitrate Urine Bilirubin Urine Urobilinogen Ur Leukocyte Esterase Urine RBC (Auto) Urine Microscopic WBC Ur Squamous Epith Cells Urine Opiates Screen Negative Urine Methadone Screen Negative Ur Barbiturates Screen Negative Ur Phencyclidine Scrn Negative Ur Amphetamines Screen Negative U Benzodiazepines Scrn Negative U Oth Cocaine Metabols Negative U Cannabinoids Screen Negative Alcohol, Quantitative Blood Type O POSITIVE Antibody Screen Negative BBK History Checked No verified bt 01/21/18 01/21/18 01/21/18 16:11 16:11 16:11 WBC 9.8 RBC 5.71 Hgb 15.8 D Hct 44.1 MCV 77.2 L D MCH 27.6 MCHC 35.8 RDW 15.6 H Plt Count 245 MPV 8.3 Neut % (Auto) 79.5 H Lymph % (Auto) 11.9 L [place] % (Auto) 7.3 Eos % (Auto) 0.7 Baso % (Auto) 0.6 Neut # (Auto) 7.8 H Lymph # (Auto) 1.2 [place] # (Auto) 0.7 Eos # (Auto) 0.1 Baso # (Auto) 0.1 PT 11.3 INR 1.0 APTT 33.6 pO2 VBG pH VBG pCO2 VBG HCO3 VBG Total CO2 VBG O2 Sat (Calc) VBG Base Excess VBG Potassium Sodium 139 Chloride 98 Glucose Lactate FiO2 Potassium 5.2 H Carbon Dioxide 22 Anion Gap 24 H BUN 13 Creatinine 0.7 L Est GFR ( Amer) > 60 Est GFR (Non-Af Amer) > 60 POC Glucose (mg/dL) Random Glucose 96 Calcium 8.5 Phosphorus 4.5 Magnesium 1.6 Total Bilirubin 2.1 H Direct Bilirubin AST 66 H D ALT 35 Alkaline Phosphatase 90 Lactate Dehydrogenase 1205 H Total Protein 8.5 H Albumin 4.1 Globulin 4.4 H Albumin/Globulin Ratio 0.9 L Triglycerides Cholesterol LDL Cholesterol Direct HDL Cholesterol Amylase 78 Lipase 355 H Venous Blood Potassium Urine Color Urine Clarity Urine pH Ur Specific [place] Urine Protein Urine Glucose (UA) Urine Ketones Urine Blood Urine Nitrate Urine Bilirubin Urine Urobilinogen Ur Leukocyte Esterase Urine RBC (Auto) Urine Microscopic WBC Ur Squamous Epith Cells Urine Opiates Screen Urine Methadone Screen Ur Barbiturates Screen Ur Phencyclidine Scrn Ur Amphetamines Screen U Benzodiazepines Scrn U Oth Cocaine Metabols U Cannabinoids Screen Alcohol, Quantitative < 10 Blood Type Antibody Screen BBK History Checked 01/21/18 01/22/18 01/22/18 21:15 05:45 05:45 WBC 8.4 RBC 4.90 Hgb 13.2 D Hct 38.0 MCV 77.6 L MCH 26.9 L MCHC 34.7 RDW 15.6 H Plt Count 193 MPV 8.4 Neut % (Auto) 71.1 Lymph % (Auto) 16.0 L [place] % (Auto) 10.6 H Eos % (Auto) 1.7 Baso % (Auto) 0.6 Neut # (Auto) 6.0 Lymph # (Auto) 1.4 [place] # (Auto) 0.9 H Eos # (Auto) 0.1 Baso # (Auto) 0.1 PT INR APTT pO2 VBG pH VBG pCO2 VBG HCO3 VBG Total CO2 VBG O2 Sat (Calc) VBG Base Excess VBG Potassium Sodium 138 Chloride 99 Glucose Lactate FiO2 Potassium 3.9 Carbon Dioxide 22 Anion Gap 21 H BUN 11 Creatinine 0.8 Est GFR ( Amer) > 60 Est GFR (Non-Af Amer) > 60 POC Glucose (mg/dL) Random Glucose 111 H Calcium 8.6 Phosphorus Magnesium Total Bilirubin 1.0 Direct Bilirubin AST 33 ALT 39 Alkaline Phosphatase 89 Lactate Dehydrogenase Total Protein 7.4 Albumin 3.7 Globulin 3.6 Albumin/Globulin Ratio 1.0 Triglycerides 3565 H Cholesterol 279 H LDL Cholesterol Direct < 30 HDL Cholesterol 20 L Amylase Lipase Venous Blood Potassium Urine Color Urine Clarity Urine pH Ur Specific [place] Urine Protein Urine Glucose (UA) Urine Ketones Urine Blood Urine Nitrate Urine Bilirubin Urine Urobilinogen Ur Leukocyte Esterase Urine RBC (Auto) Urine Microscopic WBC Ur Squamous Epith Cells Urine Opiates Screen Urine Methadone Screen Ur Barbiturates Screen Ur Phencyclidine Scrn Ur Amphetamines Screen U Benzodiazepines Scrn U Oth Cocaine Metabols U Cannabinoids Screen Alcohol, Quantitative Blood Type Antibody Screen BBK History Checked 01/22/18 01/22/18 01/22/18 06:55 07:34 09:42 WBC RBC Hgb Hct MCV MCH MCHC RDW Plt Count MPV Neut % (Auto) Lymph % (Auto) [place] % (Auto) Eos % (Auto) Baso % (Auto) Neut # (Auto) Lymph # (Auto) [place] # (Auto) Eos # (Auto) Baso # (Auto) PT INR APTT pO2 VBG pH VBG pCO2 VBG HCO3 VBG Total CO2 VBG O2 Sat (Calc) VBG Base Excess VBG Potassium Sodium Chloride Glucose Lactate FiO2 Potassium Carbon Dioxide Anion Gap BUN Creatinine Est GFR ( Amer) Est GFR (Non-Af Amer) POC Glucose (mg/dL) 103 Random Glucose Calcium Phosphorus Magnesium Total Bilirubin Direct Bilirubin 0.0 AST ALT Alkaline Phosphatase Lactate Dehydrogenase Total Protein Albumin Globulin Albumin/Globulin Ratio Triglycerides Cholesterol LDL Cholesterol Direct HDL Cholesterol Amylase Lipase Venous Blood Potassium Urine Color Yellow Urine Clarity Clear Urine pH 7.0 Ur Specific [place] 1.026 Urine Protein Negative Urine Glucose (UA) Neg Urine Ketones Negative Urine Blood Small Urine Nitrate Negative Urine Bilirubin Negative Urine Urobilinogen 0.2-1.0 Ur Leukocyte Esterase Neg Urine RBC (Auto) 5 H Urine Microscopic WBC 1 Ur Squamous Epith Cells < 1 Urine Opiates Screen Urine Methadone Screen Ur Barbiturates Screen Ur Phencyclidine Scrn Ur Amphetamines Screen U Benzodiazepines Scrn U Oth Cocaine Metabols U Cannabinoids Screen Alcohol, Quantitative Blood Type Antibody Screen BBK History Checked Assessment & Plan - Assessment and Plan (Free Text) Assessment: Patient is a 27yo male with PMHx significant for acute pancreatitis in October this year who presented to the hospital with abdominal pain -Acute pancreatitis, likely multifactorial - EtOH/tobacco use and hypertriglyceridemia -Hypertriglyceridemia -Gallbladder polyp -Obesity Plan: -Acute pancreatitis - likely multifactorial in the setting of EtOH/tobacco use just prior to onset; significant hypertriglyceridemia certainly a contributing factor -IVF LR@200cc/hr -Liquid diet and advance as tolerated -U/S reviewed - gallbladder polyp noted; pancreas not visualized, no evidence of cholelithiasis -Patient being moved to ICU for insulin gtt -Agree with endocrinology consultation -Recommend initiation of lipid lowering therapy with Gemfibrozil or Statin therapy, defer choice of regimen to endocrinology -UDS negative -Gallbladder polyp 0.86cm noted on U/S which is increased in size since prior U/ S only one month prior - though interpretation of size may vary between films, this warrants follow up and consideration for cholecystectomy if it grows to be >1cm - would repeat U/S in 3-6 months Case discussed with Dr. Hooker - Date & Time Date: 01/22/18 Time: 09:30 <Booker Hooker - Last Filed: 01/23/18 13:07> Meds - Medications Medications: Current Medications Dextrose (Dextrose 50% Inj) 0 ml IV STAT PRN; Protocol PRN Reason: Hypoglycemia Protocol Dextrose (Glutose 15) 0 gm PO ONCE PRN; Protocol PRN Reason: Hypoglycemia Protocol Enoxaparin Sodium (Lovenox) 40 mg SC DAILY ANNA PRN Reason: Protocol Last Admin: 01/23/18 09:01 Dose: 40 mg Gemfibrozil (Lopid) 600 mg PO BID ANNA Glucagon (Glucagen Diagnostic Kit) 0 mg IM STAT PRN; Protocol PRN Reason: Hypoglycemia Protocol Lactated Ringer's (Lactated Ringer's) 1,000 mls @ 200 mls/hr IV .Q5H ANNA Insulin Human Regular 100 (units/ Sodium Chloride) 101 mls @ 10.1 mls/hr IV .Q10H ANNA; 10 UNITS/HR PRN Reason: Protocol Last Admin: 01/23/18 01:30 Dose: 5 units/hr, 5.05 mls/hr Ketorolac Tromethamine (Toradol) 15 mg IVP Q6 PRN PRN Reason: Pain, moderate (4-7) Last Admin: 01/22/18 17:12 Dose: 15 mg Ketorolac Tromethamine (Toradol) 30 mg IVP Q6 PRN PRN Reason: Pain, severe (8-10) Last Admin: 01/22/18 21:22 Dose: 30 mg [id number] Ethyl Esters (Lovaza) 2 gm PO BID ANAN Ondansetron HCl (Zofran Odt) 4 mg PO Q8H PRN PRN Reason: Nausea/Vomiting Results - Vital Signs Recent Vital Signs: Last Vital Signs Temp 99.1 F 01/23/18 12:19 Pulse 97 H 01/23/18 12:19 Resp 20 01/23/18 12:19 BP 106/72 01/23/18 12:19 Pulse Ox 97 01/23/18 12:19 - Labs Result Diagrams: 01/22/18 05:45 01/22/18 05:45 Labs: Laboratory Results - last 24 hr 01/22/18 01/22/18 01/22/18 13:01 15:33 17:29 POC Glucose (mg/dL) 114 H 91 107 Triglycerides 01/22/18 01/22/18 01/23/18 21:20 21:54 00:20 POC Glucose (mg/dL) 96 96 Triglycerides 1385 H 01/23/18 01/23/18 01/23/18 04:13 07:58 09:04 POC Glucose (mg/dL) 109 98 120 H Triglycerides 01/23/18 01/23/18 01/23/18 10:10 10:27 11:47 POC Glucose (mg/dL) 110 91 Triglycerides 1293 H Attending/Attestation - Attestation I have personally seen and examined this patient.: Yes I have fully participated in the care of the patient.: Yes I have reviewed all pertinent clinical information: Yes Notes (Text): 01/23/18 12:58 This is a 27 year old male with PMHx significant for acute pancreatitis in October this year who presented to the hospital with abdominal pain found to have mild acute uncomplicated pancreatitis. Doing well on IVF. In ICU on insulin gtt. Has exposure to large amounts of alcohol last week- likely multifactorial pancreatitis. Can advance low fat diet. Discussed with the primary attending. Gallbladder polyp 0.86cm noted on U/S which is increased in size since prior U/S only one month prior - though interpretation of size may vary between films, this warrants follow up and consideration for cholecystectomy if it grows to be >1cm - would repeat U/S in 3-6 months. Thank you for letting us participate in the care of your patient
--- NOTE | 2018-01-22 11:00 | CP.CCUPN ---
<Ethan Leary - Last Filed: 01/22/18 13:13> CCU Subjective - Physician Review Subjective (Free Text): ICU Admission Note: 27 y/o luxembourger speaking male with PMHx remarkable for hypertriglyceridemia and acute pancreatitis in 10/2017 whom was sent from [facility] yesterday with c/o abd pain for 3 days associated with nausea. Denies any vomiting but the pain has been gradually worsening. Abdominal pain since admission has since subsided but was originally located in the epigastrium, intermittent, w/o radiation. Associated with intermittent nausea as well. He does not take any medications for his Hypertriglycerdemia. Admits to drinking approx 10 beers on Saturday. Denied any associated fever/chills, V/D/C, urinary symptoms, abnormal bruising at the time of admission. Today at bedside, he reports severe, 10/10 RUE pain just proximal to his elbow joint. The pain started this morning, no noticeable triggering event. ROS: as per HPI, all 12 systems reviewed and found to be negative unless otherwise mentioned PMD: [place] PMHx: hypertriglyceridemia, hypercholesterolemia, obesity Meds: none ALL: NKDA PsurgHx: denies FamilyHx: brother/sisters/parents all have cholesterol problems, both parents HTN/CAD/DM SocialHx: social ETOH, social tobacco abuse, denies illicit drug abuse Code Status: Full code CCU Objective - Vital Signs / Intake & Output Vital Signs (Last 4 hours): Vital Signs Temp Pulse Resp BP Pulse Ox 01/22/18 08:40 98.2 F 93 H 18 133/74 97 - Physical Exam Head: Positive for: Atraumatic, Normocephalic Pupils: Positive for: PERRL Extroacular Muscles: Positive for: EOMI Conjunctiva: Positive for: Normal Mouth: Positive for: Moist Mucous Membranes Neck: Positive for: Normal Range of Motion. Negative for: Meningeal Signs, Lymphadenopathy Respiratory/Chest: Positive for: Clear to Auscultation, Good Air Exchange. Negative for: Respiratory Distress, Accessory Muscle Use, Wheezes, Decreased Breath Sounds, Rales, Rhonchi, Tachypneic Cardiovascular: Positive for: Regular Rate and Rhythm, Normal S1, S2. Negative for: Murmurs Abdomen: Positive for: Tenderness (epigastric ), Normal Bowel Sounds, Other (no signs of hemorrhagic pancreatitis ). Negative for: Distention, Peritoneal Signs , Rebound, Guarding Upper Extremity: Positive for: Edema (RUE edema), NORMAL PULSES (2+ radial pulses b/l), Tenderness (RUE tenderness just proximal to elbow and along biceps) , Neurovascularly Intact, Temperature Abnormalties (RUQ warmer than left ). Negative for: Erythema Lower Extremity: Positive for: Normal Inspection, NORMAL PULSES, Capillary Refill < 2 s. Negative for: Edema, CALF TENDERNESS, Temperature Abnormalties Neurological: Positive for: GCS=15, CN II-XII Intact, Speech Normal, Motor Func Grossly Intact Skin: Positive for: Warm, Dry, Normal Color, Other (no xanthomas). Negative for : Rashes Psychiatric: Positive for: Alert, Oriented x 3, Normal Insight, Normal Concentration. Negative for: Anxious, Agitated, Suicidal Ideation, Homicidal Ideation - Medications Active Medications: Active Medications Generic Name Dose Route Start Last Admin Trade Name Freq PRN Reason Stop Dose Admin Dextrose 0 ml 01/22/18 09:06 Dextrose 50% Inj IV STAT PRN Hypoglycemia Protocol Protocol Dextrose 0 gm 01/22/18 09:06 Glutose 15 PO ONCE PRN Hypoglycemia Protocol Protocol Enoxaparin Sodium 40 mg 01/23/18 09:00 Lovenox SC DAILY ANNA Protocol Glucagon 0 mg 01/22/18 09:06 Glucagen Diagnostic Kit IM STAT PRN Hypoglycemia Protocol Protocol Lactated Ringer's 1,000 mls @ 200 mls/hr 01/22/18 07:00 Lactated Ringer's IV .Q5H ANNA Dextrose/Sodium Chloride 1,000 mls @ 200 mls/hr 01/22/18 09:15 01/22/18 09:34 Dextrose 5%/0.45% Ns 1000 Ml IV 01/23/18 09:07 200 mls/hr .Q5H ANNA Administration Insulin Human Regular 100 101 mls @ 10.1 mls/hr 01/22/18 09:15 units/ Sodium Chloride IV .Q10H ANNA Protocol 10 UNITS/HR Ketorolac Tromethamine 15 mg 01/21/18 19:07 Toradol IVP Q6 PRN Pain, moderate (4-7) Ketorolac Tromethamine 30 mg 01/21/18 19:08 Toradol IVP Q6 PRN Pain, severe (8-10) Ondansetron HCl 4 mg 01/21/18 19:07 Zofran Odt PO Q8H PRN Nausea/Vomiting - Patient Studies Lab Studies: Lab Studies 01/22/18 01/22/18 01/22/18 Range/Units 09:42 07:34 06:55 WBC (4.8-10.8) K/uL RBC (4.40-5.90) Mil/uL Hgb (12.0-18.0) g/dL Hct (35.0-51.0) % MCV (80.0-94.0) fl MCH (27.0-31.0) pg MCHC (33.0-37.0) g/dL RDW (11.5-14.5) % Plt Count (130-400) K/uL MPV (7.2-11.7) fl Neut % (Auto) (50.0-75.0) % Lymph % (Auto) (20.0-40.0) % Haakon % (Auto) (0.0-10.0) % Eos % (Auto) (0.0-4.0) % Baso % (Auto) (0.0-2.0) % Neut # (Auto) (1.8-7.0) K/uL Lymph # (Auto) (1.0-4.3) K/uL Haakon # (Auto) (0.0-0.8) K/uL Eos # (Auto) (0.0-0.7) K/uL Baso # (Auto) (0.0-0.2) K/uL PT (9.8-13.1) Seconds INR (0.9-1.2) APTT (25.6-37.1) Seconds pO2 (30-55) mm/Hg VBG pH (7.32-7.43) VBG pCO2 (40-60) mmHg VBG HCO3 mmol/L VBG Total CO2 (22-28) mmol/L VBG O2 Sat (Calc) (40-65) % VBG Base Excess (0.0-2.0) mmol/L VBG Potassium (3.6-5.2) mmol/L Sodium (132-148) mmol/L Chloride (98-107) mmol/L Glucose (75-110) mg/dL Lactate (0.7-2.1) mmol/L FiO2 % Potassium (3.6-5.0) MMOL/L Carbon Dioxide (22-30) mmol/L Anion Gap (10-20) BUN (9-20) mg/dl Creatinine (0.8-1.5) mg/dl Est GFR ( Amer) Est GFR (Non-Af Amer) POC Glucose (mg/dL) 103 (65-110) mg/dL Random Glucose (75-110) mg/dL Calcium (8.4-10.2) mg/dL Phosphorus (2.5-4.5) mg/dl Magnesium (1.6-2.3) MG/DL Total Bilirubin (0.2-1.3) mg/dl Direct Bilirubin 0.0 (0.0-0.4) mg/ml AST (17-59) U/L ALT (21-72) U/L Alkaline Phosphatase (38-126) U/L Lactate Dehydrogenase (313-618) U/L Total Protein (6.3-8.2) G/DL Albumin (3.5-5.0) g/dL Globulin (2.2-3.9) gm/dL Albumin/Globulin Ratio (1.0-2.1) Triglycerides (0-149) mg/DL Cholesterol (0-199) mg/dL LDL Cholesterol Direct (0-129) mg/dL HDL Cholesterol (30-70) MG/DL Amylase (30-110) U/L Lipase (23-300) U/L Venous Blood Potassium (3.6-5.2) mmol/L Urine Color Yellow (YELLOW) Urine Clarity Clear (Clear) Urine pH 7.0 (5.0-8.0) Ur Specific [place] 1.026 (1.003-1.030) Urine Protein Negative (NEGATIVE) mg/dL Urine Glucose (UA) Neg (Normal) mg/dL Urine Ketones Negative (NEGATIVE) mg/dL Urine Blood Small (NEGATIVE) Urine Nitrate Negative (NEGATIVE) Urine Bilirubin Negative (NEGATIVE) Urine Urobilinogen 0.2-1.0 (0.2-1.0) mg/dL Ur Leukocyte Esterase Neg (Negative) Brandan/uL Urine RBC (Auto) 5 H (0-3) /hpf Urine Microscopic WBC 1 (0-5) /hpf Ur Squamous Epith Cells < 1 (0-5) /hpf Urine Opiates Screen (NEGATIVE) Urine Methadone Screen (NEGATIVE) Ur Barbiturates Screen (NEGATIVE) Ur Phencyclidine Scrn (NEGATIVE) Ur Amphetamines Screen (NEGATIVE) U Benzodiazepines Scrn (NEGATIVE) U Oth Cocaine Metabols (NEGATIVE) U Cannabinoids Screen (NEGATIVE) Alcohol, Quantitative (0-10) mg/dl Blood Type Antibody Screen BBK History Checked 01/22/18 01/22/18 01/21/18 Range/Units 05:45 05:45 21:15 WBC 8.4 (4.8-10.8) K/uL RBC 4.90 (4.40-5.90) Mil/uL Hgb 13.2 D (12.0-18.0) g/dL Hct 38.0 (35.0-51.0) % MCV 77.6 L (80.0-94.0) fl MCH 26.9 L (27.0-31.0) pg MCHC 34.7 (33.0-37.0) g/dL RDW 15.6 H (11.5-14.5) % Plt Count 193 (130-400) K/uL MPV 8.4 (7.2-11.7) fl Neut % (Auto) 71.1 (50.0-75.0) % Lymph % (Auto) 16.0 L (20.0-40.0) % Haakon % (Auto) 10.6 H (0.0-10.0) % Eos % (Auto) 1.7 (0.0-4.0) % Baso % (Auto) 0.6 (0.0-2.0) % Neut # (Auto) 6.0 (1.8-7.0) K/uL Lymph # (Auto) 1.4 (1.0-4.3) K/uL Haakon # (Auto) 0.9 H (0.0-0.8) K/uL Eos # (Auto) 0.1 (0.0-0.7) K/uL Baso # (Auto) 0.1 (0.0-0.2) K/uL PT (9.8-13.1) Seconds INR (0.9-1.2) APTT (25.6-37.1) Seconds pO2 (30-55) mm/Hg VBG pH (7.32-7.43) VBG pCO2 (40-60) mmHg VBG HCO3 mmol/L VBG Total CO2 (22-28) mmol/L VBG O2 Sat (Calc) (40-65) % VBG Base Excess (0.0-2.0) mmol/L VBG Potassium (3.6-5.2) mmol/L Sodium 138 (132-148) mmol/L Chloride 99 (98-107) mmol/L Glucose (75-110) mg/dL Lactate (0.7-2.1) mmol/L FiO2 % Potassium 3.9 (3.6-5.0) MMOL/L Carbon Dioxide 22 (22-30) mmol/L Anion Gap 21 H (10-20) BUN 11 (9-20) mg/dl Creatinine 0.8 (0.8-1.5) mg/dl Est GFR ( Amer) > 60 Est GFR (Non-Af Amer) > 60 POC Glucose (mg/dL) (65-110) mg/dL Random Glucose 111 H (75-110) mg/dL Calcium 8.6 (8.4-10.2) mg/dL Phosphorus (2.5-4.5) mg/dl Magnesium (1.6-2.3) MG/DL Total Bilirubin 1.0 (0.2-1.3) mg/dl Direct Bilirubin (0.0-0.4) mg/ml AST 33 (17-59) U/L ALT 39 (21-72) U/L Alkaline Phosphatase 89 (38-126) U/L Lactate Dehydrogenase (313-618) U/L Total Protein 7.4 (6.3-8.2) G/DL Albumin 3.7 (3.5-5.0) g/dL Globulin 3.6 (2.2-3.9) gm/dL Albumin/Globulin Ratio 1.0 (1.0-2.1) Triglycerides 3565 H (0-149) mg/DL Cholesterol 279 H (0-199) mg/dL LDL Cholesterol Direct < 30 (0-129) mg/dL HDL Cholesterol 20 L (30-70) MG/DL Amylase (30-110) U/L Lipase (23-300) U/L Venous Blood Potassium (3.6-5.2) mmol/L Urine Color (YELLOW) Urine Clarity (Clear) Urine pH (5.0-8.0) Ur Specific [place] (1.003-1.030) Urine Protein (NEGATIVE) mg/dL Urine Glucose (UA) (Normal) mg/dL Urine Ketones (NEGATIVE) mg/dL Urine Blood (NEGATIVE) Urine Nitrate (NEGATIVE) Urine Bilirubin (NEGATIVE) Urine Urobilinogen (0.2-1.0) mg/dL Ur Leukocyte Esterase (Negative) Brandan/uL Urine RBC (Auto) (0-3) /hpf Urine Microscopic WBC (0-5) /hpf Ur Squamous Epith Cells (0-5) /hpf Urine Opiates Screen (NEGATIVE) Urine Methadone Screen (NEGATIVE) Ur Barbiturates Screen (NEGATIVE) Ur Phencyclidine Scrn (NEGATIVE) Ur Amphetamines Screen (NEGATIVE) U Benzodiazepines Scrn (NEGATIVE) U Oth Cocaine Metabols (NEGATIVE) U Cannabinoids Screen (NEGATIVE) Alcohol, Quantitative (0-10) mg/dl Blood Type Antibody Screen BBK History Checked 01/21/18 01/21/18 01/21/18 Range/Units 16:11 16:11 16:11 WBC 9.8 (4.8-10.8) K/uL RBC 5.71 (4.40-5.90) Mil/uL Hgb 15.8 D (12.0-18.0) g/dL Hct 44.1 (35.0-51.0) % MCV 77.2 L D (80.0-94.0) fl MCH 27.6 (27.0-31.0) pg MCHC 35.8 (33.0-37.0) g/dL RDW 15.6 H (11.5-14.5) % Plt Count 245 (130-400) K/uL MPV 8.3 (7.2-11.7) fl Neut % (Auto) 79.5 H (50.0-75.0) % Lymph % (Auto) 11.9 L (20.0-40.0) % Haakon % (Auto) 7.3 (0.0-10.0) % Eos % (Auto) 0.7 (0.0-4.0) % Baso % (Auto) 0.6 (0.0-2.0) % Neut # (Auto) 7.8 H (1.8-7.0) K/uL Lymph # (Auto) 1.2 (1.0-4.3) K/uL Haakon # (Auto) 0.7 (0.0-0.8) K/uL Eos # (Auto) 0.1 (0.0-0.7) K/uL Baso # (Auto) 0.1 (0.0-0.2) K/uL PT 11.3 (9.8-13.1) Seconds INR 1.0 (0.9-1.2) APTT 33.6 (25.6-37.1) Seconds pO2 (30-55) mm/Hg VBG pH (7.32-7.43) VBG pCO2 (40-60) mmHg VBG HCO3 mmol/L VBG Total CO2 (22-28) mmol/L VBG O2 Sat (Calc) (40-65) % VBG Base Excess (0.0-2.0) mmol/L VBG Potassium (3.6-5.2) mmol/L Sodium 139 (132-148) mmol/L Chloride 98 (98-107) mmol/L Glucose (75-110) mg/dL Lactate (0.7-2.1) mmol/L FiO2 % Potassium 5.2 H (3.6-5.0) MMOL/L Carbon Dioxide 22 (22-30) mmol/L Anion Gap 24 H (10-20) BUN 13 (9-20) mg/dl Creatinine 0.7 L (0.8-1.5) mg/dl Est GFR ( Amer) > 60 Est GFR (Non-Af Amer) > 60 POC Glucose (mg/dL) (65-110) mg/dL Random Glucose 96 (75-110) mg/dL Calcium 8.5 (8.4-10.2) mg/dL Phosphorus 4.5 (2.5-4.5) mg/dl Magnesium 1.6 (1.6-2.3) MG/DL Total Bilirubin 2.1 H (0.2-1.3) mg/dl Direct Bilirubin (0.0-0.4) mg/ml AST 66 H D (17-59) U/L ALT 35 (21-72) U/L Alkaline Phosphatase 90 (38-126) U/L Lactate Dehydrogenase 1205 H (313-618) U/L Total Protein 8.5 H (6.3-8.2) G/DL Albumin 4.1 (3.5-5.0) g/dL Globulin 4.4 H (2.2-3.9) gm/dL Albumin/Globulin Ratio 0.9 L (1.0-2.1) Triglycerides (0-149) mg/DL Cholesterol (0-199) mg/dL LDL Cholesterol Direct (0-129) mg/dL HDL Cholesterol (30-70) MG/DL Amylase 78 (30-110) U/L Lipase 355 H (23-300) U/L Venous Blood Potassium (3.6-5.2) mmol/L Urine Color (YELLOW) Urine Clarity (Clear) Urine pH (5.0-8.0) Ur Specific [place] (1.003-1.030) Urine Protein (NEGATIVE) mg/dL Urine Glucose (UA) (Normal) mg/dL Urine Ketones (NEGATIVE) mg/dL Urine Blood (NEGATIVE) Urine Nitrate (NEGATIVE) Urine Bilirubin (NEGATIVE) Urine Urobilinogen (0.2-1.0) mg/dL Ur Leukocyte Esterase (Negative) Brandan/uL Urine RBC (Auto) (0-3) /hpf Urine Microscopic WBC (0-5) /hpf Ur Squamous Epith Cells (0-5) /hpf Urine Opiates Screen (NEGATIVE) Urine Methadone Screen (NEGATIVE) Ur Barbiturates Screen (NEGATIVE) Ur Phencyclidine Scrn (NEGATIVE) Ur Amphetamines Screen (NEGATIVE) U Benzodiazepines Scrn (NEGATIVE) U Oth Cocaine Metabols (NEGATIVE) U Cannabinoids Screen (NEGATIVE) Alcohol, Quantitative < 10 (0-10) mg/dl Blood Type Antibody Screen BBK History Checked 01/21/18 01/21/18 01/21/18 Range/Units 16:06 15:55 15:50 WBC (4.8-10.8) K/uL RBC (4.40-5.90) Mil/uL Hgb (12.0-18.0) g/dL Hct (35.0-51.0) % MCV (80.0-94.0) fl MCH (27.0-31.0) pg MCHC (33.0-37.0) g/dL RDW (11.5-14.5) % Plt Count (130-400) K/uL MPV (7.2-11.7) fl Neut % (Auto) (50.0-75.0) % Lymph % (Auto) (20.0-40.0) % Haakon % (Auto) (0.0-10.0) % Eos % (Auto) (0.0-4.0) % Baso % (Auto) (0.0-2.0) % Neut # (Auto) (1.8-7.0) K/uL Lymph # (Auto) (1.0-4.3) K/uL Haakon # (Auto) (0.0-0.8) K/uL Eos # (Auto) (0.0-0.7) K/uL Baso # (Auto) (0.0-0.2) K/uL PT (9.8-13.1) Seconds INR (0.9-1.2) APTT (25.6-37.1) Seconds pO2 24 L (30-55) mm/Hg VBG pH 7.45 H (7.32-7.43) VBG pCO2 45 (40-60) mmHg VBG HCO3 28.5 mmol/L VBG Total CO2 32.7 H (22-28) mmol/L VBG O2 Sat (Calc) 49.1 (40-65) % VBG Base Excess 6.4 H (0.0-2.0) mmol/L VBG Potassium 4.3 (3.6-5.2) mmol/L Sodium 138.0 (132-148) mmol/L Chloride 100.0 (98-107) mmol/L Glucose 99 (75-110) mg/dL Lactate 1.9 (0.7-2.1) mmol/L FiO2 21.0 % Potassium (3.6-5.0) MMOL/L Carbon Dioxide (22-30) mmol/L Anion Gap (10-20) BUN (9-20) mg/dl Creatinine (0.8-1.5) mg/dl Est GFR ( Amer) Est GFR (Non-Af Amer) POC Glucose (mg/dL) (65-110) mg/dL Random Glucose (75-110) mg/dL Calcium (8.4-10.2) mg/dL Phosphorus (2.5-4.5) mg/dl Magnesium (1.6-2.3) MG/DL Total Bilirubin (0.2-1.3) mg/dl Direct Bilirubin (0.0-0.4) mg/ml AST (17-59) U/L ALT (21-72) U/L Alkaline Phosphatase (38-126) U/L Lactate Dehydrogenase (313-618) U/L Total Protein (6.3-8.2) G/DL Albumin (3.5-5.0) g/dL Globulin (2.2-3.9) gm/dL Albumin/Globulin Ratio (1.0-2.1) Triglycerides (0-149) mg/DL Cholesterol (0-199) mg/dL LDL Cholesterol Direct (0-129) mg/dL HDL Cholesterol (30-70) MG/DL Amylase (30-110) U/L Lipase (23-300) U/L Venous Blood Potassium 4.3 (3.6-5.2) mmol/L Urine Color (YELLOW) Urine Clarity (Clear) Urine pH (5.0-8.0) Ur Specific [place] (1.003-1.030) Urine Protein (NEGATIVE) mg/dL Urine Glucose (UA) (Normal) mg/dL Urine Ketones (NEGATIVE) mg/dL Urine Blood (NEGATIVE) Urine Nitrate (NEGATIVE) Urine Bilirubin (NEGATIVE) Urine Urobilinogen (0.2-1.0) mg/dL Ur Leukocyte Esterase (Negative) Brandan/uL Urine RBC (Auto) (0-3) /hpf Urine Microscopic WBC (0-5) /hpf Ur Squamous Epith Cells (0-5) /hpf Urine Opiates Screen Negative (NEGATIVE) Urine Methadone Screen Negative (NEGATIVE) Ur Barbiturates Screen Negative (NEGATIVE) Ur Phencyclidine Scrn Negative (NEGATIVE) Ur Amphetamines Screen Negative (NEGATIVE) U Benzodiazepines Scrn Negative (NEGATIVE) U Oth Cocaine Metabols Negative (NEGATIVE) U Cannabinoids Screen Negative (NEGATIVE) Alcohol, Quantitative (0-10) mg/dl Blood Type O POSITIVE Antibody Screen Negative BBK History Checked No verified bt Laboratory Results - last 24 hr 01/21/18 01/21/18 01/21/18 15:50 15:55 16:06 WBC RBC Hgb Hct MCV MCH MCHC RDW Plt Count MPV Neut % (Auto) Lymph % (Auto) Haakon % (Auto) Eos % (Auto) Baso % (Auto) Neut # (Auto) Lymph # (Auto) Haakon # (Auto) Eos # (Auto) Baso # (Auto) PT INR APTT pO2 24 L VBG pH 7.45 H VBG pCO2 45 VBG HCO3 28.5 VBG Total CO2 32.7 H VBG O2 Sat (Calc) 49.1 VBG Base Excess 6.4 H VBG Potassium 4.3 Sodium 138.0 Chloride 100.0 Glucose 99 Lactate 1.9 FiO2 21.0 Potassium Carbon Dioxide Anion Gap BUN Creatinine Est GFR ( Amer) Est GFR (Non-Af Amer) POC Glucose (mg/dL) Random Glucose Calcium Phosphorus Magnesium Total Bilirubin Direct Bilirubin AST ALT Alkaline Phosphatase Lactate Dehydrogenase Total Protein Albumin Globulin Albumin/Globulin Ratio Triglycerides Cholesterol LDL Cholesterol Direct HDL Cholesterol Amylase Lipase Venous Blood Potassium 4.3 Urine Color Urine Clarity Urine pH Ur Specific [place] Urine Protein Urine Glucose (UA) Urine Ketones Urine Blood Urine Nitrate Urine Bilirubin Urine Urobilinogen Ur Leukocyte Esterase Urine RBC (Auto) Urine Microscopic WBC Ur Squamous Epith Cells Urine Opiates Screen Negative Urine Methadone Screen Negative Ur Barbiturates Screen Negative Ur Phencyclidine Scrn Negative Ur Amphetamines Screen Negative U Benzodiazepines Scrn Negative U Oth Cocaine Metabols Negative U Cannabinoids Screen Negative Alcohol, Quantitative Blood Type O POSITIVE Antibody Screen Negative BBK History Checked No verified bt 01/21/18 01/21/18 01/21/18 16:11 16:11 16:11 WBC 9.8 RBC 5.71 Hgb 15.8 D Hct 44.1 MCV 77.2 L D MCH 27.6 MCHC 35.8 RDW 15.6 H Plt Count 245 MPV 8.3 Neut % (Auto) 79.5 H Lymph % (Auto) 11.9 L Haakon % (Auto) 7.3 Eos % (Auto) 0.7 Baso % (Auto) 0.6 Neut # (Auto) 7.8 H Lymph # (Auto) 1.2 Haakon # (Auto) 0.7 Eos # (Auto) 0.1 Baso # (Auto) 0.1 PT 11.3 INR 1.0 APTT 33.6 pO2 VBG pH VBG pCO2 VBG HCO3 VBG Total CO2 VBG O2 Sat (Calc) VBG Base Excess VBG Potassium Sodium 139 Chloride 98 Glucose Lactate FiO2 Potassium 5.2 H Carbon Dioxide 22 Anion Gap 24 H BUN 13 Creatinine 0.7 L Est GFR ( Amer) > 60 Est GFR (Non-Af Amer) > 60 POC Glucose (mg/dL) Random Glucose 96 Calcium 8.5 Phosphorus 4.5 Magnesium 1.6 Total Bilirubin 2.1 H Direct Bilirubin AST 66 H D ALT 35 Alkaline Phosphatase 90 Lactate Dehydrogenase 1205 H Total Protein 8.5 H Albumin 4.1 Globulin 4.4 H Albumin/Globulin Ratio 0.9 L Triglycerides Cholesterol LDL Cholesterol Direct HDL Cholesterol Amylase 78 Lipase 355 H Venous Blood Potassium Urine Color Urine Clarity Urine pH Ur Specific [place] Urine Protein Urine Glucose (UA) Urine Ketones Urine Blood Urine Nitrate Urine Bilirubin Urine Urobilinogen Ur Leukocyte Esterase Urine RBC (Auto) Urine Microscopic WBC Ur Squamous Epith Cells Urine Opiates Screen Urine Methadone Screen Ur Barbiturates Screen Ur Phencyclidine Scrn Ur Amphetamines Screen U Benzodiazepines Scrn U Oth Cocaine Metabols U Cannabinoids Screen Alcohol, Quantitative < 10 Blood Type Antibody Screen BBK History Checked 01/21/18 01/22/18 01/22/18 21:15 05:45 05:45 WBC 8.4 RBC 4.90 Hgb 13.2 D Hct 38.0 MCV 77.6 L MCH 26.9 L MCHC 34.7 RDW 15.6 H Plt Count 193 MPV 8.4 Neut % (Auto) 71.1 Lymph % (Auto) 16.0 L Haakon % (Auto) 10.6 H Eos % (Auto) 1.7 Baso % (Auto) 0.6 Neut # (Auto) 6.0 Lymph # (Auto) 1.4 Haakon # (Auto) 0.9 H Eos # (Auto) 0.1 Baso # (Auto) 0.1 PT INR APTT pO2 VBG pH VBG pCO2 VBG HCO3 VBG Total CO2 VBG O2 Sat (Calc) VBG Base Excess VBG Potassium Sodium 138 Chloride 99 Glucose Lactate FiO2 Potassium 3.9 Carbon Dioxide 22 Anion Gap 21 H BUN 11 Creatinine 0.8 Est GFR ( Amer) > 60 Est GFR (Non-Af Amer) > 60 POC Glucose (mg/dL) Random Glucose 111 H Calcium 8.6 Phosphorus Magnesium Total Bilirubin 1.0 Direct Bilirubin AST 33 ALT 39 Alkaline Phosphatase 89 Lactate Dehydrogenase Total Protein 7.4 Albumin 3.7 Globulin 3.6 Albumin/Globulin Ratio 1.0 Triglycerides 3565 H Cholesterol 279 H LDL Cholesterol Direct < 30 HDL Cholesterol 20 L Amylase Lipase Venous Blood Potassium Urine Color Urine Clarity Urine pH Ur Specific [place] Urine Protein Urine Glucose (UA) Urine Ketones Urine Blood Urine Nitrate Urine Bilirubin Urine Urobilinogen Ur Leukocyte Esterase Urine RBC (Auto) Urine Microscopic WBC Ur Squamous Epith Cells Urine Opiates Screen Urine Methadone Screen Ur Barbiturates Screen Ur Phencyclidine Scrn Ur Amphetamines Screen U Benzodiazepines Scrn U Oth Cocaine Metabols U Cannabinoids Screen Alcohol, Quantitative Blood Type Antibody Screen BBK History Checked 01/22/18 01/22/18 01/22/18 06:55 07:34 09:42 WBC RBC Hgb Hct MCV MCH MCHC RDW Plt Count MPV Neut % (Auto) Lymph % (Auto) Haakon % (Auto) Eos % (Auto) Baso % (Auto) Neut # (Auto) Lymph # (Auto) Haakon # (Auto) Eos # (Auto) Baso # (Auto) PT INR APTT pO2 VBG pH VBG pCO2 VBG HCO3 VBG Total CO2 VBG O2 Sat (Calc) VBG Base Excess VBG Potassium Sodium Chloride Glucose Lactate FiO2 Potassium Carbon Dioxide Anion Gap BUN Creatinine Est GFR ( Amer) Est GFR (Non-Af Amer) POC Glucose (mg/dL) 103 Random Glucose Calcium Phosphorus Magnesium Total Bilirubin Direct Bilirubin 0.0 AST ALT Alkaline Phosphatase Lactate Dehydrogenase Total Protein Albumin Globulin Albumin/Globulin Ratio Triglycerides Cholesterol LDL Cholesterol Direct HDL Cholesterol Amylase Lipase Venous Blood Potassium Urine Color Yellow Urine Clarity Clear Urine pH 7.0 Ur Specific [place] 1.026 Urine Protein Negative Urine Glucose (UA) Neg Urine Ketones Negative Urine Blood Small Urine Nitrate Negative Urine Bilirubin Negative Urine Urobilinogen 0.2-1.0 Ur Leukocyte Esterase Neg Urine RBC (Auto) 5 H Urine Microscopic WBC 1 Ur Squamous Epith Cells < 1 Urine Opiates Screen Urine Methadone Screen Ur Barbiturates Screen Ur Phencyclidine Scrn Ur Amphetamines Screen U Benzodiazepines Scrn U Oth Cocaine Metabols U Cannabinoids Screen Alcohol, Quantitative Blood Type Antibody Screen BBK History Checked EKG/Cardiology Studies: Cardiology / EKG Studies 01/22/18 EKG [ELECTROCARDIOGRAM] Routine Comment: Mode Of Transportation: Reason For Exam: epigastric pain. R/O Cardiac disease Fingerstick Blood Sugar Results: 103 Review of Systems - Review of Systems All systems: reviewed and no additional remarkable complaints except Critical Care Progress Note - Ventilator Checklist Head of Bed 30 Degrees: Yes Daily Sedation Vacation: No Daily Assessment of Readiness to Wean: No Daily Spontaneous Breathing Trial: No DVT Prophylaxis: Yes - Extremities/Vascular Does the Patient have a Central Venous Catheter?: No Does the Patient have a Dong Catheter?: No Does the Patient need a Dong Catheter?: No - Nutrition Nutrition: Nutrition Category Date Time Status Liquid Diet [DIET] Diets 01/22/18 Breakfast Active Assessment/Plan - Assessment and Plan (Free Text) Assessment: 27 y/o male with a PMHx of hypertriglyceridemia admitted for acute early pancreatitis, admitted to ICU for insulin therapy and close glucose monitoring. 1) Hypertriglyceridemia induced Acute Pancreatitis -likely combination of recent ETOH/Lipid levels -Lipase 355 -afebrile, no leukocytosis/penia -Lactate 1.9 -Corrected Ca+: 8.8 -Serum Alc <10 -Triglycerides on admission: 20701 (one month ago 1770), now 2610 -Insulin Drip, 0.1 U/kg/hr -Accuchecks Q1 -trend Lipid panel -consider Fibrate therapy if normal CPK -supplement with IVF D50.45NS @ rate of 200mls/hr -supplement with full liquid diet to keep sugars from reaching hypoglycemia levels -Abd US: unremarkable -f/u endocrine consult 2) Right Upper Extremity Pain/Edema: -new onset just prior to evaluation -rule out VTE -RUE doppler -CPK/Uric acid levels: pending -15mg Toradol IVP prn for pain 3) Hypertriglyceridemia -Triglycerides 3565 now 2610 -awaiting results of CPK prior to starting Fibrate therapy -trend lipid panels Q12 hours, goal TG<500 -GI consult appreciated 4) Gallbadder polyp on US: -5x9 mm gallbadder polyps -Repeat US in 3-6 months per GI recommendation 5) Prophylaxis -Lovenox 40 mg daily -head of bed elevation 6) Code Status -Full code <Doe Babcock - Last Filed: 01/22/18 13:53> CCU Subjective - Physician Review Subjective (Free Text): Attestation: Patient seen and examined at the bedside with Resident Dr. Tavo Leary; and I agree with his outline of plans and management as documented and discussed on AM rounds reflecting my review of all applicable clinical data, and participation in the care of the patient throughout the day in ICU; today, January 22, 2018.
--- NOTE | 2018-01-22 15:25 | US ---
PROCEDURE: Right Upper Extremity Venous Doppler HISTORY: RUE Edema/pain COMPARISON: None available. TECHNIQUE: Right upper extremity deep veins, including the lower internal jugular, subclavian, axillary and brachial veins, were evaluated flow, compressibility and respiratory phasicity. FINDINGS: Normal flow, compressibility and respiratory phasicity was observed in the right upper extremity deep veins. IMPRESSION: No evidence of deep venous thrombosis.
--- NOTE | 2018-01-22 17:51 | CARD ---
APPROVED REPORT EKG Measurement Heart [id number] <Conclusion> Normal sinus rhythm Normal ECG
[2018-01-22] MEDS ORDERED: Enoxaparin 40 mg Syringe SC SCH (18:00)
[2018-01-23] MEDS: Dextrose 5%/0.45% NS 1,000 ML IV SCH ×2 (00:15→07:19)
[2018-01-23] MEDS: Enoxaparin 40 mg Syringe SC SCH (09:01)
--- NOTE | 2018-01-23 09:32 | CP.PCM.PN ---
Subjective - Date & Time of Evaluation Date of Evaluation: 01/23/18 Time of Evaluation: 07:50 - Subjective Subjective: Patient seen and examined in ICU this morning. Patient states his abdominal pain has almost resolved. Denies any nausea, vomiting, fever, chills, headache , dizziness, chest pain or dyspnea. Denies any leg pain or arm pain. Pt is on insulin drip and IVFs. Objective - Vital Signs/Intake and Output Vital Signs (last 24 hours): Temp Pulse Resp BP Pulse Ox 99.5 F 90 16 134/76 96 01/23/18 08:00 01/23/18 09:00 01/23/18 09:00 01/23/18 09:00 01/23/18 09:00 Intake and Output: 01/23/18 01/23/18 06:59 18:59 Intake Total 0 Balance 0 - Medications Medications: Current Medications Dextrose (Dextrose 50% Inj) 0 ml IV STAT PRN; Protocol PRN Reason: Hypoglycemia Protocol Dextrose (Glutose 15) 0 gm PO ONCE PRN; Protocol PRN Reason: Hypoglycemia Protocol Enoxaparin Sodium (Lovenox) 40 mg SC DAILY ANNA PRN Reason: Protocol Last Admin: 01/23/18 09:01 Dose: 40 mg Glucagon (Glucagen Diagnostic Kit) 0 mg IM STAT PRN; Protocol PRN Reason: Hypoglycemia Protocol Lactated Ringer's (Lactated Ringer's) 1,000 mls @ 200 mls/hr IV .Q5H [facility] Insulin Human Regular 100 (units/ Sodium Chloride) 101 mls @ 10.1 mls/hr IV .Q10H ANNA; 10 UNITS/HR PRN Reason: Protocol Last Admin: 01/23/18 01:30 Dose: 5 units/hr, 5.05 mls/hr Ketorolac Tromethamine (Toradol) 15 mg IVP Q6 PRN PRN Reason: Pain, moderate (4-7) Last Admin: 01/22/18 17:12 Dose: 15 mg Ketorolac Tromethamine (Toradol) 30 mg IVP Q6 PRN PRN Reason: Pain, severe (8-10) Last Admin: 01/22/18 21:22 Dose: 30 mg Ondansetron HCl (Zofran Odt) 4 mg PO Q8H PRN PRN Reason: Nausea/Vomiting - Labs Labs: 01/22/18 05:45 01/22/18 05:45 PT 11.3 Seconds (9.8-13.1) 01/21/18 16:11 INR 1.0 (0.9-1.2) 01/21/18 16:11 APTT 33.6 Seconds (25.6-37.1) 01/21/18 16:11 - Additional Findings Additional findings: - Constitutional Appears: Non-toxic, no acute distress - Head Exam Head Exam: NORMAL INSPECTION - Eye Exam Eye Exam: EOMI, no icterus - ENT Exam ENT Exam: Mucous Membranes Moist - Respiratory Exam Respiratory Exam: Clear to Auscultation Bilateral, NORMAL BREATHING PATTERN. absent: Rales, Rhonchi, Wheezes - Cardiovascular Exam Cardiovascular Exam: REGULAR RHYTHM, +S1, +S2. - GI/Abdominal Exam GI & Abdominal Exam: Normal Bowel Sounds, Soft, minimal epigastric tenderness. absent: Distended, Rebound, Rigid or guarding - Extremities Exam Extremities exam: Positive for: normal capillary refill. Negative for: calf tenderness, pedal edema, tenderness - Back Exam Back exam: absent: CVA tenderness (L), CVA tenderness (R) - Neurological Exam Neurological exam: Alert, Normal Gait, Oriented x3 - Psychiatric Exam Psychiatric exam: Normal Affect, Normal Mood - Skin Skin Exam: Normal Color, Warm Assessment and Plan - Assessment and Plan (Free Text) Assessment: 27 y/o male with Hx of hypertriglyceridemia admitted for acute early pancreatitis Acute early pancreatitis -likely multifactorial (hypertriglyceridemia +EtoH use) -2nd episode of Pancreatitis this year -Lipase 355 -VS WNL. afebrile.no leukocytosis. Lactate 1.9 -Triglycerides on admission: 61223 -Triglycerides is trending down: 1293 this morning, was 1385 yesterday. -Abd US: No acute findings related to / accounting for the clinical presentation. No significant interval change compared to the prior examination(s ) -GI consult appreciated -Continue IVF @200 cc/hr -f/u endocrine consult -Continue with insulin drip and accuchecks Q1 Hypertriglyceridemia -Chronic -Lipid panel ordered Triglycerides 3565 -Triglycerides is trending down: 1293 this morning, was 1385 yesterday. -GI consult appreciated -Patient will benefit from long-term use of Statin/Fibrates Gallbadder polyp on US: -5x9 mm gallbadder polyps -Repeat US in 3-6 months per GI recommendation DVT prophylaxis -Lovenox 40 mg daily Code status -Full code
--- NOTE | 2018-01-23 11:32 | CP.CCUPN ---
<SeantonyEthan - Last Filed: 01/23/18 11:36> CCU Subjective - Physician Review Events Since Last Encounter (Free Text): pt seen and examined at bedside. Reports feeling better. Tolerating PO intake w/ o issue. RUE pain has resolved. TGs trending down. Blood sugars stable. No other complaints/concerns. CCU Objective - Vital Signs / Intake & Output Vital Signs (Last 4 hours): Vital Signs Temp Pulse Resp BP Pulse Ox 01/23/18 09:00 90 16 134/76 96 01/23/18 08:00 99.5 F 99 H 20 117/84 96 Intake and Output (Last 8hrs): Intake & Output 01/22/18 01/23/18 01/23/18 22:59 06:59 14:59 Intake Total 1600 0 Output Total 800 Balance 800 0 Intake: IV 1600 0 Output: Urine 800 Urine, Voided 800 - Physical Exam Head: Positive for: Atraumatic, Normocephalic Pupils: Positive for: PERRL Extroacular Muscles: Positive for: EOMI Conjunctiva: Positive for: Normal Mouth: Positive for: Moist Mucous Membranes Neck: Positive for: Normal Range of Motion. Negative for: Meningeal Signs, Lymphadenopathy Respiratory/Chest: Positive for: Clear to Auscultation, Good Air Exchange. Negative for: Respiratory Distress, Accessory Muscle Use, Wheezes, Decreased Breath Sounds, Rales, Rhonchi, Tachypneic Cardiovascular: Positive for: Regular Rate and Rhythm, Normal S1, S2. Negative for: Murmurs Abdomen: Positive for: Tenderness (epigastric ), Normal Bowel Sounds, Other (no signs of hemorrhagic pancreatitis ). Negative for: Distention, Peritoneal Signs , Rebound, Guarding Upper Extremity: Positive for: Normal Inspection, Normal ROM, NORMAL PULSES (2+ radial pulses b/l), Neurovascularly Intact, Capillary Refill < 2s. Negative for : Edema, Tenderness, Swelling, Erythema, Temperature Abnormalties, Deformity Lower Extremity: Positive for: Normal Inspection, NORMAL PULSES, Capillary Refill < 2 s. Negative for: Edema, CALF TENDERNESS, Temperature Abnormalties Neurological: Positive for: GCS=15, CN II-XII Intact, Speech Normal, Motor Func Grossly Intact Skin: Positive for: Warm, Dry, Normal Color, Other (no xanthomas). Negative for : Rashes Psychiatric: Positive for: Alert, Oriented x 3, Normal Insight, Normal Concentration. Negative for: Anxious, Agitated, Suicidal Ideation, Homicidal Ideation - Medications Active Medications: Active Medications Generic Name Dose Route Start Last Admin Trade Name Freq PRN Reason Stop Dose Admin Dextrose 0 ml 01/22/18 09:06 Dextrose 50% Inj IV STAT PRN Hypoglycemia Protocol Protocol Dextrose 0 gm 01/22/18 09:06 Glutose 15 PO ONCE PRN Hypoglycemia Protocol Protocol Enoxaparin Sodium 40 mg 01/23/18 09:00 01/23/18 09:01 Lovenox SC 40 mg DAILY ANNA Administration Protocol Glucagon 0 mg 01/22/18 09:06 Glucagen Diagnostic Kit IM STAT PRN Hypoglycemia Protocol Protocol Lactated Ringer's 1,000 mls @ 200 mls/hr 01/22/18 07:00 Lactated Ringer's IV .Q5H [facility] Insulin Human Regular 100 101 mls @ 10.1 mls/hr 01/22/18 09:15 01/23/18 01:30 units/ Sodium Chloride IV 5 units/hr .Q10H ANNA 5.05 mls/hr Protocol Administration 10 UNITS/HR Ketorolac Tromethamine 15 mg 01/21/18 19:07 01/22/18 17:12 Toradol IVP 15 mg Q6 PRN Administration Pain, moderate (4-7) Ketorolac Tromethamine 30 mg 01/21/18 19:08 01/22/18 21:22 Toradol IVP 30 mg Q6 PRN Administration Pain, severe (8-10) Ondansetron HCl 4 mg 01/21/18 19:07 Zofran Odt PO Q8H PRN Nausea/Vomiting - Patient Studies Lab Studies: Microbiology Studies 01/21/18 16:30 Blood Culture - Preliminary Blood NO GROWTH AFTER 24 HOURS 01/21/18 15:50 Blood Culture - Preliminary Blood NO GROWTH AFTER 24 HOURS Lab Studies 01/23/18 01/23/18 01/23/18 Range/Units 10:27 10:10 09:04 POC Glucose (mg/dL) 110 120 H (65-110) mg/dL Uric Acid (3.5-8.5) mg/Dl Total Creatine Kinase (55-170) U/L Triglycerides 1293 H (0-149) mg/DL 01/23/18 01/23/18 01/23/18 Range/Units 07:58 04:13 00:20 POC Glucose (mg/dL) 98 109 96 (65-110) mg/dL Uric Acid (3.5-8.5) mg/Dl Total Creatine Kinase (55-170) U/L Triglycerides (0-149) mg/DL 01/22/18 01/22/18 01/22/18 Range/Units 21:54 21:20 17:29 POC Glucose (mg/dL) 96 107 (65-110) mg/dL Uric Acid (3.5-8.5) mg/Dl Total Creatine Kinase (55-170) U/L Triglycerides 1385 H (0-149) mg/DL 01/22/18 01/22/18 01/22/18 Range/Units 15:33 13:01 12:33 POC Glucose (mg/dL) 91 114 H (65-110) mg/dL Uric Acid 10.0 H (3.5-8.5) mg/Dl Total Creatine Kinase 164 (55-170) U/L Triglycerides (0-149) mg/DL 01/22/18 Range/Units 11:41 POC Glucose (mg/dL) 136 H (65-110) mg/dL Uric Acid (3.5-8.5) mg/Dl Total Creatine Kinase (55-170) U/L Triglycerides (0-149) mg/DL Laboratory Results - last 24 hr 01/22/18 01/22/18 01/22/18 11:41 12:33 13:01 POC Glucose (mg/dL) 136 H 114 H Uric Acid 10.0 H Total Creatine Kinase 164 Triglycerides 01/22/18 01/22/18 01/22/18 15:33 17:29 21:20 POC Glucose (mg/dL) 91 107 96 Uric Acid Total Creatine Kinase Triglycerides 01/22/18 01/23/18 01/23/18 21:54 00:20 04:13 POC Glucose (mg/dL) 96 109 Uric Acid Total Creatine Kinase Triglycerides 1385 H 01/23/18 01/23/18 01/23/18 07:58 09:04 10:10 POC Glucose (mg/dL) 98 120 H Uric Acid Total Creatine Kinase Triglycerides 1293 H 01/23/18 10:27 POC Glucose (mg/dL) 110 Uric Acid Total Creatine Kinase Triglycerides Fingerstick Blood Sugar Results: 110 Review of Systems - Review of Systems All systems: reviewed and no additional remarkable complaints except - EENT Eyes: UNREMARKABLE Ears: UNREMARKABLE Nose/Mouth/Throat: UNREMARKABLE - Cardiovascular Cardiovascular: UNREMARKABLE - Respiratory Respiratory: UNREMARKABLE - Gastrointestinal Gastrointestinal: UNREMARKABLE - Musculoskeletal Musculoskeletal: UNREMARKABLE Critical Care Progress Note - Ventilator Checklist Head of Bed 30 Degrees: No Daily Sedation Vacation: No Daily Assessment of Readiness to Wean: No Daily Spontaneous Breathing Trial: No PUD Prophalyxis: No DVT Prophylaxis: Yes Oral Care with Chlorhexidine Gluconate {CHG}: No - Extremities/Vascular Does the Patient have a Central Venous Catheter?: No Does the Patient need a Central Venous Catheter?: No Does the Patient have a Dong Catheter?: No Does the Patient need a Dong Catheter?: No - Nutrition Nutrition: Nutrition Category Date Time Status Liquid Diet [DIET] Diets 01/22/18 Breakfast Active Assessment/Plan - Assessment and Plan (Free Text) Assessment: 27 y/o male with a PMHx of hypertriglyceridemia admitted for acute early pancreatitis, admitted to ICU for insulin therapy and close glucose monitoring. 1) Hypertriglyceridemia induced Acute Pancreatitis -improving -likely combination of recent ETOH abuse and elevating TG levels -Lipase 355 -afebrile, no leukocytosis/penia -Triglycerides: ~1200 (trending down) -Insulin Drip, 5 units per hour -Accuchecks Q1 -trend Lipid panel Q12H till TG levels <500 -Start Gemfibrozil 600mg BID -Start [place]-3 acid supplement 2gm BID -supplement with IVF D50.45NS @ rate of 200mls/hr -supplement with full liquid diet to keep sugars from reaching hypoglycemia levels -f/u endocrine consult 2) Right Upper Extremity Pain/Edema: -resolved -RUE doppler: negative for VTE -CPK/Uric acid levels: wnl/10.0 -15mg Toradol IVP prn for pain 3) Hypertriglyceridemia -Triglycerides 3565 now ~1200 -trend lipid panels Q12 hours, goal TG<500 -medical management as above -GI consult appreciated 4) Gallbadder polyp on US: -5x9 mm gallbadder polyps -Repeat US in 3-6 months per GI recommendation 5) Prophylaxis -Lovenox 40 mg daily -head of bed elevation 6) Code Status -Full code <Doe Babcock - Last Filed: 01/23/18 13:10> CCU Subjective - Physician Review Events Since Last Encounter (Free Text): Attestation: Patient seen and examined at the bedside with Resident Dr. Tavo Leary; and I agree with his outline of plans and management as documented and discussed on AM rounds reflecting my review of all applicable clinical data, and participation in the care of the patient throughout the day in ICU; today, January 23, 2018.
[2018-01-23] MEDS ORDERED: Omega-3-Acid Ethyl Esters 1 GM Cap PO SCH (11:45)
[2018-01-23] MEDS ORDERED: Dextrose 5%/0.45% NS 1,000 ML IV SCH (21:30)
[2018-01-24 05:28] LABS: MEAN CELL VOLUME 78.7 fl (80.0-94.0); MEAN CORPUSCULAR HEMOGLOBIN 26.3 pg (27.0-31.0); MEAN CORPUSCULAR HGB CONC 33.4 g/dL (33.0-37.0); RBC 4.56 Mil/uL (4.40-5.90); RED CELL DISTRIBUTION WIDTH 15.4 % (11.5-14.5); WHITE BLOOD COUNT 8.6 K/uL (4.8-10.8)
[2018-01-24 05:50] LABS: BLOOD UREA NITROGEN 8 mg/dl (9-20); GFR AFRICAN-AMERICAN > 60; GFR NON-AFRICAN AMERICAN > 60; HDL CHOLESTEROL 13 MG/DL (30-70); LDL CHOLESTEROL < 30 mg/dL (0-129); LIPASE 46 U/L (23-300)
[2018-01-24 08:22] VITALS: BP 122/72; PULSE 93; RESP 20; TEMP 98.3; O2SAT 95
[2018-01-24] MEDS: Enoxaparin 40 mg Syringe SC SCH (08:48)
[2018-01-24] MEDS ORDERED: Omega-3-Acid Ethyl Esters 1 GM Cap PO SCH (09:00)
--- NOTE | 2018-01-24 12:46 | CP.PCM.DIS ---
Provider - Provider Date of Admission: 01/23/18 09:21 Attending physician: Geraldine Weber MD Consults: GI: Dr. Hooker Endo: Dr. Heard Time Spent in preparation of Discharge (in minutes): 30 Diagnosis - Discharge Diagnosis (1) Abdominal pain Status: Resolved (2) High blood triglycerides Status: Acute (3) Pancreatitis Status: Resolved (4) Hyperuricemia Status: Acute (5) Gout Status: Acute (6) Vitamin B 12 deficiency Status: Acute Hospital Course - Lab Results Lab Results: Micro Results 01/22/18 17:30 Nose MRSA Culture (Admit) - Final MRSA NOT DETECTED 01/21/18 16:30 Blood Blood Culture - Preliminary NO GROWTH AFTER 48 HOURS 01/21/18 15:50 Blood Blood Culture - Preliminary NO GROWTH AFTER 48 HOURS Most Recent Lab Values WBC 8.6 K/uL (4.8-10.8) 01/24/18 04:20 RBC 4.56 Mil/uL (4.40-5.90) 01/24/18 04:20 Hgb 12.0 g/dL (12.0-18.0) 01/24/18 04:20 Hct 35.9 % (35.0-51.0) 01/24/18 04:20 MCV 78.7 fl (80.0-94.0) L 01/24/18 04:20 MCH 26.3 pg (27.0-31.0) L 01/24/18 04:20 MCHC 33.4 g/dL (33.0-37.0) 01/24/18 04:20 RDW 15.4 % (11.5-14.5) H 01/24/18 04:20 Plt Count 171 K/uL (130-400) 01/24/18 04:20 MPV 8.4 fl (7.2-11.7) 01/22/18 05:45 Neut % (Auto) 71.1 % (50.0-75.0) 01/22/18 05:45 Lymph % (Auto) 16.0 % (20.0-40.0) L 01/22/18 05:45 Story % (Auto) 10.6 % (0.0-10.0) H 01/22/18 05:45 Eos % (Auto) 1.7 % (0.0-4.0) 01/22/18 05:45 Baso % (Auto) 0.6 % (0.0-2.0) 01/22/18 05:45 Neut # (Auto) 6.0 K/uL (1.8-7.0) 01/22/18 05:45 Lymph # (Auto) 1.4 K/uL (1.0-4.3) 01/22/18 05:45 Story # (Auto) 0.9 K/uL (0.0-0.8) H 01/22/18 05:45 Eos # (Auto) 0.1 K/uL (0.0-0.7) 01/22/18 05:45 Baso # (Auto) 0.1 K/uL (0.0-0.2) 01/22/18 05:45 PT 11.3 Seconds (9.8-13.1) 01/21/18 16:11 INR 1.0 (0.9-1.2) 01/21/18 16:11 APTT 33.6 Seconds (25.6-37.1) 01/21/18 16:11 pO2 24 mm/Hg (30-55) L 01/21/18 15:55 VBG pH 7.45 (7.32-7.43) H 01/21/18 15:55 VBG pCO2 45 mmHg (40-60) 01/21/18 15:55 VBG HCO3 28.5 mmol/L 01/21/18 15:55 VBG Total CO2 32.7 mmol/L (22-28) H 01/21/18 15:55 VBG O2 Sat (Calc) 49.1 % (40-65) 01/21/18 15:55 VBG Base Excess 6.4 mmol/L (0.0-2.0) H 01/21/18 15:55 VBG Potassium 4.3 mmol/L (3.6-5.2) 01/21/18 15:55 Sodium 138.0 mmol/L (132-148) 01/21/18 15:55 Chloride 100.0 mmol/L (98-107) 01/21/18 15:55 Glucose 99 mg/dL (75-110) 01/21/18 15:55 Lactate 1.9 mmol/L (0.7-2.1) 01/21/18 15:55 FiO2 21.0 % 01/21/18 15:55 Sodium 142 mmol/l (132-148) 01/24/18 04:20 Potassium 4.4 MMOL/L (3.6-5.0) 01/24/18 04:20 Chloride 101 mmol/L (98-107) 01/24/18 04:20 Carbon Dioxide 24 mmol/L (22-30) 01/24/18 04:20 Anion Gap 21 (10-20) H 01/24/18 04:20 BUN 8 mg/dl (9-20) L 01/24/18 04:20 Creatinine 0.8 mg/dl (0.8-1.5) 01/24/18 04:20 Est GFR ( Amer) > 60 01/24/18 04:20 Est GFR (Non-Af Amer) > 60 01/24/18 04:20 POC Glucose (mg/dL) 143 mg/dL (65-110) H 01/24/18 09:05 Random Glucose 115 mg/dL (75-110) H 01/24/18 04:20 Uric Acid 10.0 mg/Dl (3.5-8.5) H 01/22/18 12:33 Calcium 9.0 mg/dL (8.4-10.2) 01/24/18 04:20 Phosphorus 4.5 mg/dl (2.5-4.5) 01/21/18 16:11 Magnesium 1.6 MG/DL (1.6-2.3) 01/21/18 16:11 Total Bilirubin 1.0 mg/dl (0.2-1.3) 01/22/18 05:45 Direct Bilirubin 0.0 mg/ml (0.0-0.4) 01/22/18 06:55 AST 33 U/L (17-59) 01/22/18 05:45 ALT 39 U/L (21-72) 01/22/18 05:45 Alkaline Phosphatase 89 U/L (38-126) 01/22/18 05:45 Lactate Dehydrogenase 1205 U/L (313-618) H 01/21/18 16:11 Total Creatine Kinase 164 U/L (55-170) 01/22/18 12:33 Total Protein 7.4 G/DL (6.3-8.2) 01/22/18 05:45 Albumin 3.7 g/dL (3.5-5.0) 01/22/18 05:45 Globulin 3.6 gm/dL (2.2-3.9) 01/22/18 05:45 Albumin/Globulin Ratio 1.0 (1.0-2.1) 01/22/18 05:45 Triglycerides 1673 mg/DL (0-149) H 01/24/18 04:20 Cholesterol 258 mg/dL (0-199) H 01/24/18 04:20 LDL Cholesterol Direct < 30 mg/dL (0-129) 01/24/18 04:20 HDL Cholesterol 13 MG/DL (30-70) L 01/24/18 04:20 Amylase 78 U/L (30-110) 01/21/18 16:11 Lipase 46 U/L (23-300) 01/24/18 04:20 Vitamin B12 < 159 pg/mL (239-931) L 01/24/18 04:20 TSH 3rd Generation 4.91 mIU/ML (0.46-4.68) H 01/24/18 04:20 Venous Blood Potassium 4.3 mmol/L (3.6-5.2) 01/21/18 15:55 Urine Color Yellow (YELLOW) 01/22/18 07:34 Urine Clarity Clear (Clear) 01/22/18 07:34 Urine pH 7.0 (5.0-8.0) 01/22/18 07:34 Ur Specific [place] 1.026 (1.003-1.030) 01/22/18 07:34 Urine Protein Negative mg/dL (NEGATIVE) 01/22/18 07:34 Urine Glucose (UA) Neg mg/dL (Normal) 01/22/18 07:34 Urine Ketones Negative mg/dL (NEGATIVE) 01/22/18 07:34 Urine Blood Small (NEGATIVE) 01/22/18 07:34 Urine Nitrate Negative (NEGATIVE) 01/22/18 07:34 Urine Bilirubin Negative (NEGATIVE) 01/22/18 07:34 Urine Urobilinogen 0.2-1.0 mg/dL (0.2-1.0) 01/22/18 07:34 Ur Leukocyte Esterase Neg [place]/uL (Negative) 01/22/18 07:34 Urine RBC (Auto) 5 /hpf (0-3) H 01/22/18 07:34 Urine Microscopic WBC 1 /hpf (0-5) 01/22/18 07:34 Ur Squamous Epith Cells < 1 /hpf (0-5) 01/22/18 07:34 Urine Opiates Screen Negative (NEGATIVE) 01/21/18 16:06 Urine Methadone Screen Negative (NEGATIVE) 01/21/18 16:06 Ur Barbiturates Screen Negative (NEGATIVE) 01/21/18 16:06 Ur Phencyclidine Scrn Negative (NEGATIVE) 01/21/18 16:06 Ur Amphetamines Screen Negative (NEGATIVE) 01/21/18 16:06 U Benzodiazepines Scrn Negative (NEGATIVE) 01/21/18 16:06 U Oth Cocaine Metabols Negative (NEGATIVE) 01/21/18 16:06 U Cannabinoids Screen Negative (NEGATIVE) 01/21/18 16:06 Alcohol, Quantitative < 10 mg/dl (0-10) 01/21/18 16:11 Blood Type O POSITIVE 01/21/18 15:50 Antibody Screen Negative 01/21/18 15:50 BBK History Checked No verified bt 01/21/18 15:50 - Hospital Course Hospital Course: 27 y/o male with PMHx of hypertriglyceridemia and acute pancreatitis in 2017 whom was sent from [facility] on 01/21/18 with c/o abd pain for 3 days associated with nausea. Denies any vomiting but the pain has been gradually worsening. He does not take any medications for his Hypertriglycerdemia. Admits to drinking approx 10 beers on Saturday. Denied any associated fever/chills, V/D/C, urinary symptoms, abnormal bruising at the time of admission. Pt was admitted to [facility] on 01/21/18 for acute pancreatitis likely secondary to hypertriglyceridemia and binge drinking. Pt was in ICU for insulin drip for elevated triglyceride level. GI and endocrine were consulted during pts stay. His triglyceride levels on discharge is 1673 (3565 on admission) and lipase is 46 (355 on admission). Pt is medically stable to discharge home. Advised to take all the medications and advised to quit drinking. Has follow up outpatient appointment with Dr. Erickson on 01/28/18 at 11:20 am. Medications on discharge: Cyanocobalamin (Vitamin B-12) [Vitamin B-12] 1,000 mcg SL DAILY #30 tab.subl Fenofibrate [Tricor] 145 mg PO HS #30 tab Ibuprofen [Motrin Tab] 600 mg PO TID prn #30 tab Zhyoy-4-Inuv Ethyl Esters 1 GM [Lovaza] 1 gm PO BID #60 sgl Discharge Exam - Head Exam Head Exam: ATRAUMATIC, NORMAL INSPECTION, NORMOCEPHALIC - Eye Exam Eye Exam: Normal appearance - ENT Exam ENT Exam: Mucous Membranes Moist, Normal Oropharynx - Respiratory Exam Respiratory Exam: Clear to PA & Lateral, NORMAL BREATHING PATTERN. absent: Wheezes, Respiratory Distress - Cardiovascular Exam Cardiovascular Exam: REGULAR RHYTHM, RRR, +S1, +S2 - GI/Abdominal Exam GI & Abdominal Exam: Normal Bowel Sounds, Soft. absent: Rebound, Rigid, Tenderness - Extremities Exam Extremities exam: normal inspection - Neurological Exam Neurological exam: Alert, Oriented x3 - Psychiatric Exam Psychiatric exam: Normal Affect, Normal Mood Discharge Plan - Discharge Medications Prescriptions: Cyanocobalamin (Vitamin B-12) [Vitamin B-12] 1,000 mcg SL DAILY #30 tab.subl Fenofibrate [Tricor] 145 mg PO HS #30 tab Ibuprofen [Motrin Tab] 600 mg PO TID #30 tab Vfrds-1-Sgte Ethyl Esters 1 GM [Lovaza] 1 gm PO BID #60 sgl - Follow Up Plan Condition: FAIR Disposition: HOME/ ROUTINE Instructions: Pancreatitis (DC) Additional Instructions: Patient to follow up with Dr. Erickson, [facility], 01/28/18 @ 11:20am. Take medications as prescribed. ED precautions discussed. Encouraged PO hydration.
== END 2018-01-24 10:27 | disposition home or self-care (01) | DRG 204 ==
LOC: H.ER 14:51 → H.ERHOLD 18:30 → H.MEDSURG1 22:35 → H.ICU/CCU 01-22 11:03 → OBSVTOIN 01-23 09:21
PROVIDERS: ADMIT Family Medicine Geriatric Medicine; ATTEND Family Medicine Geriatric Medicine
DX: K85.80 Other acute pancreatitis without necrosis or infection (principal); E53.8 Deficiency of other specified B group vitamins; E11.65 Type 2 diabetes mellitus with hyperglycemia; K82.4 Cholesterolosis of gallbladder; E78.1 Pure hyperglyceridemia; E66.9 Obesity, unspecified; Z68.36 Body mass index [BMI] 36.0-36.9, adult; E78.00 Pure hypercholesterolemia, unspecified; M10.9 Gout, unspecified; M79.601 Pain in right arm; F17.290 Nicotine dependence, other tobacco product, uncomplicated; Z82.49 Family history of ischemic heart disease and other diseases of the circulatory system; F10.10 Alcohol abuse, uncomplicated; Z79.84 Long term (current) use of oral hypoglycemic drugs

== ENCOUNTER 2018-06-11 14:15 | Inpatient (IN) | payer SELFPAY ==
[2018-06-11] MEDS ORDERED: Sodium Chloride 0.9% 1,000 ML IV STA (14:40)
[2018-06-11] MEDS ORDERED: Iohexol 240 (50 ml) PO ONE (14:40)
[2018-06-11] MEDS ORDERED: Iohexol 240 (50 ml) ONE (14:55)
--- NOTE | 2018-06-11 14:56 | ED PDOC ---
HPI: Abdomen Time Seen by Provider: 06/11/18 14:24 Chief Complaint (Nursing): Abdominal Pain Chief Complaint (Provider): Abd pain History Per: Patient History/Exam Limitations: no limitations Onset/Duration Of Symptoms: Days (3 days) Additional Complaint(s): Abd pain diffuse. 3 days constant. Nausea, nonbloody vomit. ?diarrhea also. No weakness, back pain, fever, cough. No chest pain, dyspnea. No dysuria. No new food or drinks. No testicular pain. Past Medical History Reviewed: Nursing Documentation, Vital Signs Vital Signs: Last Vital Signs Temp 97.0 F L 06/11/18 14:17 Pulse 98 H 06/11/18 14:17 Resp 20 06/11/18 14:17 BP 130/82 06/11/18 14:17 Pulse Ox 100 06/11/18 14:17 - Medical History PMH: Pancreatitis Denies: HIV, Chronic Kidney Disease - Surgical History Surgical History: No Surg Hx - Family History Family History: States: Unknown Family Hx, CAD - Home Medications Home Medications: Ambulatory Orders Medication Instructions Recorded Cyanocobalamin (Vitamin B-12) 1,000 mcg SL DAILY #30 tab.subl 01/24/18 [Vitamin B-12] Fenofibrate [Tricor] 145 mg PO HS #30 tab 01/24/18 Ibuprofen [Motrin Tab] 600 mg PO TID #30 tab 01/24/18 Pkyfy-6-Oykk Ethyl Esters 1 GM 1 gm PO BID #60 sgl 01/24/18 [Lovaza] - Allergies Allergies/Adverse Reactions: Allergies Allergy/AdvReac Type Severity Reaction Status Date / Time No Known Allergies Allergy Verified 10/12/17 13:53 Review of Systems ROS Statement: Except As Marked, All Systems Reviewed And Found Negative Gastrointestinal: Positive for: Nausea, Vomiting, Abdominal Pain, Diarrhea Physical Exam - Reviewed Nursing Documentation Reviewed: Yes Vital Signs Reviewed: Yes - Physical Exam Appears: Positive for: Non-toxic, No Acute Distress Head Exam: Positive for: ATRAUMATIC Skin: Positive for: Normal Color, Warm, DRY Eye Exam: Positive for: EOMI, Normal appearance, PERRL ENT: Positive for: Normal ENT Inspection Neck: Positive for: Normal Cardiovascular/Chest: Positive for: Regular Rate, Rhythm Respiratory: Positive for: CNT, Normal Breath Sounds Gastrointestinal/Abdominal: Positive for: Soft, Tenderness (diffuse) Back: Positive for: Normal Inspection. Negative for: L CVA Tenderness, R CVA Tenderness Extremity: Positive for: Normal ROM. Negative for: Tenderness, Pedal Edema Neurologic/Psych: Positive for: Alert, Oriented - Laboratory Results Result Diagrams: 06/11/18 15:10 06/11/18 16:38 Interpretation Of Abn Labs: elevated lipase, elevated wbc, hemolyzed K - ECG O2 Sat by Pulse Oximetry: 100 Pulse Ox Interpretation: Normal - Progress ED Course And Treament: 1834: Stable. AAOx3. Dr. Dick will admit. Pain free. Disposition - Clinical Impression Clinical Impression: Pancreatitis - Patient ED Disposition Is Patient to be Admitted: Yes Counseled Patient/Family Regarding: Studies Performed, Diagnosis - Disposition Disposition Time: 18:34 Condition: STABLE - Pt Status Changed To: Hospital Disposition Of: Inpatient - Admit Certification Admit to Inpatient:: After my assessment, the patient will require hospitalization for at least two midnights. This is because of the severity of symptoms shown, intensity of services needed, and/or the medical risk in this patient being treated as an outpatient. - POA Present On Arrival: None
[2018-06-11 15:21] LABS: BASO # 0.1 K/uL (0.0-0.2); BASO % 0.8 % (0.0-2.0); EOS % 0.2 % (0.0-4.0); HEMOGLOBIN 16.5 g/dL (12.0-18.0); LYMPH # 0.7 K/uL (1.0-4.3); LYMPH % 5.6 % (20.0-40.0); MEAN CELL VOLUME 76.7 fl (80.0-94.0); MEAN CORPUSCULAR HEMOGLOBIN 28.5 pg (27.0-31.0); MEAN CORPUSCULAR HGB CONC 37.1 g/dL (33.0-37.0); MEAN PLATELET VOLUME 8.5 fl (7.2-11.7); MONO % 7.6 % (0.0-10.0); NEUT # 11.1 K/uL (1.8-7.0); NEUT % 85.8 % (50.0-75.0); NRBC % 0.1 % (0.0-0.0); PLATELET COUNT 289 K/uL (130-400); RBC 5.81 Mil/uL (4.40-5.90); RED CELL DISTRIBUTION WIDTH 15.3 % (11.5-14.5); WHITE BLOOD COUNT 12.9 K/uL (4.8-10.8)
[2018-06-11 15:22] LABS: PROTHROMBIN TIME 11.2 Seconds (9.8-13.1)
[2018-06-11 15:25] LABS: PARTIAL THROMBOPLASTIN TIME 32.6 Seconds (25.6-37.1)
[2018-06-11 17:08] LABS: BLOOD UREA NITROGEN 9 mg/dl (9-20); CALCIUM 8.6 mg/dL (8.4-10.2); GFR NON-AFRICAN AMERICAN > 60
[2018-06-11 17:09] LABS: ALB/GLOB RATIO 1.1 (1.0-2.1); ALBUMIN 4.6 g/dL (3.5-5.0); ALT/SGPT 48 U/L (21-72); AST/SGOT 71 U/L (17-59)
[2018-06-11] MEDS ORDERED: Iohexol 300 100 ML IJ ONE (17:32)
[2018-06-11] MEDS ORDERED: Sodium Chloride 0.9% 50 ML IV ONE (17:32)
[2018-06-11 17:41] LABS: LIPASE 8143 U/L (23-300)
[2018-06-11] MEDS ORDERED: Morphine 4 MG/ML VIAL ONE (18:33)
[2018-06-11] MEDS: Lactated Ringer's 1,000 ML IV SCH (18:45)
[2018-06-11 18:55] LABS: BANDS 4 % (0-2); EOSINOPHIL 1 % (0-7); LYMPHOCYTE 9 % (20-50); MONOCYTE 6 % (0-10); NEUTROPHIL 80 % (42-75); PLATELET ESTIMATE NORMAL (NORMAL); TOTAL CELLS COUNTED 100
[2018-06-11 18:56] LABS: HYPOCHROMIC SLIGHT; LARGE PLATELETS PRESENT; MICROCYTOSIS SLIGHT
--- NOTE | 2018-06-11 18:57 | CP.PCM.HP ---
<Ethan Leary - Last Filed: 06/11/18 20:31> History of Present Illness - History of Present Illness History of Present Illness: 27 y/o vietnamese speaking male with history of hypertriglyceridemia presented for evaluation of epigastric pain. Pain started on Saturday without any known inciting event or cause. Pain gradually worsened to 10/10 today, causing the patient to come to the ER for evaluation. The pain is located in the epigastrium and does not radiate. It is intermittent, and sharp in character. No alleviating/aggravating factors. It is associated with nausea, loss of appetite, and 3 episodes of NBNB emesis today. 1 episode of loose stool yesterday, but normal today. Denies fever/chills, headaches, changes in vision, CP/SOB/JIN, urinary symptoms. ROS: as per HPI, all 12 systems reviewed and found to be negative unless otherwise mentioned PMD: [facility] PMHx: hypertriglyceridemia, hypercholesterolemia, obesity PHospHx: January 2018, hypertriglyceridemia induced pancreatitis Meds: fenofibrate 145mg QD, Vit B12 (as per most recent clinic visit on 02/04) ALL: NKDA PsurgHx: denies FamilyHx: brother/sisters/parents all have cholesterol problems, both parents HTN/CAD/DM SocialHx: social ETOH but denies in the past month , social tobacco abuse, denies illicit drug abuse Code Status: Full code ED Course: Vitals: T 97 F, BP 130/82, HR 98, RR 20, POX 100% RA CBC: 12.9>16.5/44.6<289 CMP: hemolyzed sample, Ca 8.6, Na 140, BUN/Cr: 9/0.6, GFR>60 Lipase: 8143 Utox: negative ETOH: <[address] PO/IV contrast: pending report meds zofran LR bolus x 2 morphine 4mg x1 Present on Admission - Present on Admission Any Indicators Present on Admission: No History of DVT/PE: No History of Uncontrolled Diabetes: No Urinary Catheter: No Decubitus Ulcer Present: No Review of Systems - Review of Systems Review of Systems: as per HPI Past Patient History - Infectious Disease Hx of Infectious Diseases: None - Past Medical History & Family History Past Medical History?: No - Past Social History Smoking Status: Current Some Days Smoker Alcohol: Social - CARDIAC Other/Comment: hypertriglyceridemia - PULMONARY Hx Respiratory Disorders: No - NEUROLOGICAL Hx Neurological Disorder: No - HEENT Hx HEENT Problems: No - RENAL Hx Chronic Kidney Disease: No - ENDOCRINE/METABOLIC Hx Endocrine Disorders: No - HEMATOLOGICAL/ONCOLOGICAL Hx Human Immunodeficiency Virus (HIV): No - INTEGUMENTARY Hx Dermatological Problems: No - MUSCULOSKELETAL/RHEUMATOLOGICAL Hx Musculoskeletal Disorders: No Hx Falls: No - GASTROINTESTINAL Hx Pancreatitis: Yes - GENITOURINARY/GYNECOLOGICAL Hx Genitourinary Disorders: No - PSYCHIATRIC Hx Psychophysiologic Disorder: No Hx Substance Use: No - SURGICAL HISTORY Hx Surgeries: Yes Other/Comment: 2004 surgery of left big toe - ANESTHESIA Hx Anesthesia: Yes Hx Anesthesia Reactions: No Hx Malignant Hyperthermia: No Meds Allergies/Adverse Reactions: Allergies Allergy/AdvReac Type Severity Reaction Status Date / Time No Known Allergies Allergy Verified 10/12/17 13:53 Physical Exam - Constitutional Appears: Non-toxic, No Acute Distress Additional comments: uncomfortable - Head Exam Head Exam: ATRAUMATIC, NORMOCEPHALIC - Eye Exam Eye Exam: EOMI, Normal appearance, PERRL. absent: Scleral icterus - ENT Exam ENT Exam: Mucous Membranes Moist - Respiratory Exam Respiratory Exam: Clear to Auscultation Bilateral, NORMAL BREATHING PATTERN. absent: Rales, Rhonchi, Wheezes - Cardiovascular Exam Cardiovascular Exam: REGULAR RHYTHM, RRR, +S1, +S2. absent: JVD, Rubs - GI/Abdominal Exam GI & Abdominal Exam: Guarding (voluntary guarding ), Normal Bowel Sounds, Soft, Tenderness (epigastric ). absent: Distended, Firm, Rebound, Rigid - Extremities Exam Extremities exam: Positive for: normal inspection, pedal pulses present. Negative for: pedal edema - Neurological Exam Neurological exam: Alert, CN II-XII Intact, Oriented x3 - Skin Skin Exam: Dry, Intact, Normal Color Results - Vital Signs Recent Vital Signs: Last Vital Signs Temp 98.1 F 06/11/18 18:45 Pulse 86 06/11/18 18:45 Resp 16 06/11/18 18:45 BP 132/83 06/11/18 18:45 Pulse Ox 98 06/11/18 18:45 - Labs Result Diagrams: 06/11/18 15:10 06/11/18 16:38 Labs: Laboratory Results - last 24 hr 06/11/18 06/11/1818 15:10 15:10 16:38 WBC 12.9 H RBC 5.81 Hgb 16.5 D Hct 44.6 MCV 76.7 L D MCH 28.5 MCHC 37.1 H RDW 15.3 H Plt Count 289 D MPV 8.5 Neut % (Auto) 85.8 H Lymph % (Auto) 5.6 L Lake % (Auto) 7.6 Eos % (Auto) 0.2 Baso % (Auto) 0.8 Neut # (Auto) 11.1 H Lymph # (Auto) 0.7 L Lake # (Auto) 1.0 H Eos # (Auto) 0.0 Baso # (Auto) 0.1 Neutrophils % (Manual) 80 H Band Neutrophils % 4 H Lymphocytes % (Manual) 9 L Monocytes % (Manual) 6 Eosinophils % (Manual) 1 Platelet Estimate Normal Large Platelets Present Hypochromasia (manual) Slight Microcytosis (manual) Slight PT 11.2 INR 1.0 APTT 32.6 Sodium 140 Potassium 5.3 H Chloride 106 Carbon Dioxide 21 L Anion Gap 18 BUN 9 Creatinine 0.6 L Est GFR ( Amer) > 60 Est GFR (Non-Af Amer) > 60 Random Glucose 110 Calcium 8.6 Total Bilirubin 1.4 H AST 71 H D ALT 48 Alkaline Phosphatase 81 Total Protein 8.9 H Albumin 4.6 Globulin 4.3 H Albumin/Globulin Ratio 1.1 Lipase 8143 H Assessment & Plan - Assessment and Plan (Free Text) Assessment: 27 y/o male with a PMHx of hypertriglyceridemia admitted for acute pancreatitis. 1) Acute Pancreatitis -likely 2/2 to elevated TGs -Lipase 8143 -Serum Alc <10 -serum Ca: 8.6 -BISAP score: 1 (tachycardia/leukocytosis on presentation) -UTOX negative -Triglycerides on admission: 2795 -trend Lipid panel -leukocytosis of 12.9 -afebrile -IV fluid hydration with NS @ 250mls/hr -zofran PRN nausea -pain control as ordered -NPO -f/u am labs -GI Consult 2) Hypertriglyceridemia -Triglycerides 2795 -trend lipid panels Q12 hours, goal TG<500 -IV fluid hydration -consider resuming fenofibrate 3) Leukocytosis -likely 2/2 demargination -12.9 -afebrile -no systemic complaints as per pt -f/u morning CBC 4) Prophylaxis -Lovenox 40 mg daily 5) Code Status -Full code <Joe Dick D - Last Filed: 06/11/18 23:19> Results - Vital Signs Recent Vital Signs: Last Vital Signs Temp 98.4 F 06/11/18 20:41 Pulse 93 H 06/11/18 20:41 Resp 18 06/11/18 20:49 BP 156/90 H 06/11/18 20:41 Pulse Ox 97 06/11/18 20:41 - Labs Result Diagrams: 06/11/18 15:10 06/11/18 16:38 Labs: Laboratory Results - last 24 hr 06/11/18 06/11/18 06/11/18 15:10 15:10 16:38 WBC 12.9 H RBC 5.81 Hgb 16.5 D Hct 44.6 MCV 76.7 L D MCH 28.5 MCHC 37.1 H RDW 15.3 H Plt Count 289 D MPV 8.5 Neut % (Auto) 85.8 H Lymph % (Auto) 5.6 L Lake % (Auto) 7.6 Eos % (Auto) 0.2 Baso % (Auto) 0.8 Neut # (Auto) 11.1 H Lymph # (Auto) 0.7 L Lake # (Auto) 1.0 H Eos # (Auto) 0.0 Baso # (Auto) 0.1 Neutrophils % (Manual) 80 H Band Neutrophils % 4 H Lymphocytes % (Manual) 9 L Monocytes % (Manual) 6 Eosinophils % (Manual) 1 Platelet Estimate Normal Large Platelets Present Hypochromasia (manual) Slight Microcytosis (manual) Slight PT 11.2 INR 1.0 APTT 32.6 Sodium 140 Potassium 5.3 H Chloride 106 Carbon Dioxide 21 L Anion Gap 18 BUN 9 Creatinine 0.6 L Est GFR ( Amer) > 60 Est GFR (Non-Af Amer) > 60 Random Glucose 110 Calcium 8.6 Total Bilirubin 1.4 H AST 71 H D ALT 48 Alkaline Phosphatase 81 Total Creatine Kinase Total Protein 8.9 H Albumin 4.6 Globulin 4.3 H Albumin/Globulin Ratio 1.1 Triglycerides Cholesterol LDL Cholesterol Direct HDL Cholesterol Lipase 8143 H Urine Opiates Screen Urine Methadone Screen Ur Barbiturates Screen Ur Phencyclidine Scrn Ur Amphetamines Screen U Benzodiazepines Scrn U Oth Cocaine Metabols U Cannabinoids Screen Alcohol, Quantitative 06/11/18 06/11/18 19:18 19:19 WBC RBC Hgb Hct MCV MCH MCHC RDW Plt Count MPV Neut % (Auto) Lymph % (Auto) Lake % (Auto) Eos % (Auto) Baso % (Auto) Neut # (Auto) Lymph # (Auto) Lake # (Auto) Eos # (Auto) Baso # (Auto) Neutrophils % (Manual) Band Neutrophils % Lymphocytes % (Manual) Monocytes % (Manual) Eosinophils % (Manual) Platelet Estimate Large Platelets Hypochromasia (manual) Microcytosis (manual) PT INR APTT Sodium Potassium Chloride Carbon Dioxide Anion Gap BUN Creatinine Est GFR ( Amer) Est GFR (Non-Af Amer) Random Glucose Calcium Total Bilirubin AST ALT Alkaline Phosphatase Total Creatine Kinase 175 H Total Protein Albumin Globulin Albumin/Globulin Ratio Triglycerides 2795 H Cholesterol 246 H LDL Cholesterol Direct < 30 HDL Cholesterol 16 L Lipase Urine Opiates Screen Negative Urine Methadone Screen Negative Ur Barbiturates Screen Negative Ur Phencyclidine Scrn Negative Ur Amphetamines Screen Negative U Benzodiazepines Scrn Negative U Oth Cocaine Metabols Negative U Cannabinoids Screen Negative Alcohol, Quantitative < 10 Attending/Attestation - Attestation I have personally seen and examined this patient.: Yes I have fully participated in the care of the patient.: Yes I have reviewed all pertinent clinical information: Yes
[2018-06-11 19:45] LABS: HDL CHOLESTEROL 16 MG/DL (30-70); LDL CHOLESTEROL < 30 mg/dL (0-129)
[2018-06-11 19:46] LABS: BARBITURATES, UR NEGATIVE (NEGATIVE); BENZODIAZEPINES, UR NEGATIVE (NEGATIVE); OPIATES, UR NEGATIVE (NEGATIVE); PHENCYCLIDINE, UR NEGATIVE (NEGATIVE)
[2018-06-12] MEDS: Lactated Ringer's 1,000 ML IV SCH ×2 (01:57→06:45)
[2018-06-12 06:10] LABS: HEMOGLOBIN 16.1 g/dL (12.0-18.0); MEAN CELL VOLUME 77.7 fl (80.0-94.0); MEAN CORPUSCULAR HEMOGLOBIN 26.4 pg (27.0-31.0); RBC 6.08 Mil/uL (4.40-5.90); RED CELL DISTRIBUTION WIDTH 14.8 % (11.5-14.5); WHITE BLOOD COUNT 8.2 K/uL (4.8-10.8)
[2018-06-12 06:32] LABS: ALB/GLOB RATIO 1.1 (1.0-2.1); ALBUMIN 3.8 g/dL (3.5-5.0); ALT/SGPT 42 U/L (21-72); AST/SGOT 28 U/L (17-59); BLOOD UREA NITROGEN 7 mg/dl (9-20); CALCIUM 7.7 mg/dL (8.4-10.2); GFR NON-AFRICAN AMERICAN > 60; HDL CHOLESTEROL 20 MG/DL (30-70)
[2018-06-12 06:59] LABS: LDL CHOLESTEROL < 30 mg/dL (0-129); LIPASE 2552 U/L (23-300)
[2018-06-12] MEDS: Dextrose 5%/0.9% NS 1,000 ML IV SCH ×3 (09:07→23:10)
[2018-06-12] MEDS: Enoxaparin 40 mg Syringe SC SCH (09:08)
--- NOTE | 2018-06-12 12:18 | CP.PCM.PN ---
<Silvia Gibbs - Last Filed: 06/12/18 13:48> Subjective - Date & Time of Evaluation Date of Evaluation: 06/12/18 Time of Evaluation: 09:13 - Subjective Subjective: Patient was seen and examined this morning. He reported still having "stomach pain", but stated it is better. He denied any fever, chills, headache, chest pain or sob. Objective - Vital Signs/Intake and Output Vital Signs (last 24 hours): Temp Pulse Resp BP Pulse Ox 98.2 F 118 H 20 139/72 95 06/12/18 08:35 06/12/18 08:35 06/12/18 08:35 06/12/18 08:35 06/12/18 08:35 - Medications Medications: Current Medications Acetaminophen (Tylenol 325mg Tab) 650 mg PO Q6 PRN PRN Reason: Pain, Mild (1-3) Enoxaparin Sodium (Lovenox) 40 mg SC DAILY [facility]; Protocol Last Admin: 06/12/18 09:08 Dose: 40 mg Fenofibrate (Tricor) 145 mg PO HS [facility] Dextrose/Sodium Chloride (Dextrose 5%/0.9% Ns 1000 Ml) 1,000 mls @ 250 mls/hr IV .Q4H [facility] Stop: 06/13/18 08:11 Last Admin: 06/12/18 09:07 Dose: 250 mls/hr Ketorolac Tromethamine (Toradol) 30 mg IVP Q6 PRN PRN Reason: Pain, moderate (4-7) Last Admin: 06/12/18 06:43 Dose: 30 mg Morphine Sulfate (Morphine) 4 mg IVP Q6 PRN PRN Reason: Pain, severe (8-10) Last Admin: 06/12/18 11:37 Dose: 4 mg Obcax-8-Dmsg Ethyl Esters (Lovaza) 1 gm PO BID [facility] Ondansetron HCl (Zofran Inj) 4 mg IVP Q6 PRN PRN Reason: Nausea/Vomiting - Labs Labs: 06/12/18 05:30 06/12/18 05:30 PT 11.2 Seconds (9.8-13.1) 06/11/18 15:10 INR 1.0 06/11/18 15:10 APTT 32.6 Seconds (25.6-37.1) 06/11/18 15:10 - Constitutional Appears: No Acute Distress - Head Exam Head Exam: ATRAUMATIC, NORMOCEPHALIC - Neck Exam Neck Exam: Full ROM - Respiratory Exam Respiratory Exam: Clear to Ausculation Bilateral - Cardiovascular Exam Cardiovascular Exam: REGULAR RHYTHM, +S1, +S2 - GI/Abdominal Exam Additional comments: soft, with some mild epigastric tenderness, but no guarding or rigidity noted - Extremities Exam Additional comments: calves nontender, no pitting edema - Neurological Exam Additional comments: Alert & oriented x 3 - Psychiatric Exam Psychiatric exam: Normal Affect, Normal Mood - Skin Skin Exam: Dry, Intact Assessment and Plan - Assessment and Plan (Free Text) Assessment: 27 y/o male with a PMHx of hypertriglyceridemia was admitted for acute pancreatitis likely secondary to elevated triglycerides. 1) Pancreatitis (Acute, symptomatic) -Likely secondary to elevated triglycerides. -Lipase trending down; 8143 on admission, currently 2552. -Triglycerides trending down: 2795 on admission, currently 1335. -Leukocytosis of 12.9 on admission, currently 8.2. -Abd CT: acute, uncomplicated pancreatitis. -Continue IV fluid hydration. -Continue zofran PRN nausea. -Continue pain control as ordered. -Continue NPO. -F/u repeat labs. -GI Consulted. Will follow up recommendations. -Serum Alc <10 -Serum Ca: 8.6, now 7.7. -Patient continues to remain afebrile. -Will continue to monitor. 2) Hypertriglyceridemia (uncontrolled) -Triglycerides trending down: 2795 on admission, currently 1335. Will continue to monitor. -Lipase trending down; 8143 on admission, currently 2552. -Continue IV fluid hydration. -Consider resuming fenofibrate. 3) Leukocytosis (Acute, asymptomatic) -Likely secondary to demargination. -12.9 on admission, currently 8.2. -Patient continues to remain afebrile. -Will continue to monitor. 4) Prophylaxis -Lovenox 40 mg daily 5) Code Status -Full code <Joe Dick D - Last Filed: 06/12/18 15:40> Objective - Vital Signs/Intake and Output Vital Signs (last 24 hours): Temp Pulse Resp BP Pulse Ox 98.2 F 118 H 20 139/72 95 06/12/18 08:35 06/12/18 08:35 06/12/18 08:35 06/12/18 08:35 06/12/18 08:35 - Medications Medications: Current Medications Acetaminophen (Tylenol 325mg Tab) 650 mg PO Q6 PRN PRN Reason: Pain, Mild (1-3) Enoxaparin Sodium (Lovenox) 40 mg SC DAILY [facility]; Protocol Last Admin: 06/12/18 09:08 Dose: 40 mg Fenofibrate (Tricor) 145 mg PO HS [facility] Dextrose/Sodium Chloride (Dextrose 5%/0.9% Ns 1000 Ml) 1,000 mls @ 250 mls/hr IV .Q4H [facility] Stop: 06/13/18 08:11 Last Admin: 06/12/18 09:07 Dose: 250 mls/hr Ketorolac Tromethamine (Toradol) 30 mg IVP Q6 PRN PRN Reason: Pain, moderate (4-7) Last Admin: 06/12/18 06:43 Dose: 30 mg Morphine Sulfate (Morphine) 4 mg IVP Q6 PRN PRN Reason: Pain, severe (8-10) Last Admin: 06/12/18 11:37 Dose: 4 mg Ekdwc-1-Fyhr Ethyl Esters (Lovaza) 1 gm PO BID [facility] Ondansetron HCl (Zofran Inj) 4 mg IVP Q6 PRN PRN Reason: Nausea/Vomiting - Labs Labs: 06/12/18 05:30 06/12/18 05:30 PT 11.2 Seconds (9.8-13.1) 06/11/18 15:10 INR 1.0 06/11/18 15:10 APTT 32.6 Seconds (25.6-37.1) 06/11/18 15:10 Attending/Attestation - Attestation I have personally seen and examined this patient.: Yes I have fully participated in the care of the patient.: Yes I have reviewed all pertinent clinical information, including history, physical exam and plan: Yes
--- NOTE | 2018-06-12 12:46 | CT ---
Date of service: 2018-06-11 17:42:03 PROCEDURE: CT Abdomen and Pelvis with and without intravenous contrast HISTORY: abd pain COMPARISON: 10/12/2017 TECHNIQUE: Axial images of the abdomen were obtained in the pre contrast, portal venous and delayed phases of enhancement. Coronal and sagittal reformats were generated. Contrast dose: 95 mL Omnipaque 300 Radiation dose: Total exam DLP = 860.12 mGy-cm. This CT exam was performed using one or more of the following dose reduction techniques: Automated exposure control, adjustment of the mA and/or kV according to patient size, and/or use of iterative reconstruction technique. FINDINGS: LOWER THORAX: No infiltrate/effusion. Incidentally noted calcified granuloma in the right lower lobe. LIVER: Unremarkable. No gross lesion or ductal dilatation. GALLBLADDER AND BILE DUCTS: Unremarkable. PANCREAS: Moderate peripancreatic fluid/edema consistent with acute pancreatitis. No gross evidence of infarct or hemorrhagic pancreatitis. However, the study was not performed in a fashion talar for evaluation of pancreatic necrosis. No pancreatic mass. No pancreatic ductal dilatation. No sam organized peripancreatic fluid collection. SPLEEN: Unremarkable. ADRENALS: Unremarkable. No mass. KIDNEYS AND URETERS: Unremarkable. No hydronephrosis. No solid mass. VASCULATURE: Unremarkable. No aortic aneurysm. BOWEL: Mild mural thickening of the duodenum consistent with adjacent pancreatitis. No other abnormal bowel loops. No bowel obstruction. APPENDIX: Normal appendix. PERITONEUM: Unremarkable. No free fluid. No free air. LYMPH NODES: Unremarkable. No enlarged lymph nodes. BLADDER: Unremarkable. REPRODUCTIVE: Normal prostate BONES: No acute fracture. OTHER FINDINGS: None. IMPRESSION: Findings consistent with acute uncomplicated pancreatitis. No other significant abnormality. The preliminary findings for this examination were reported by [facility] at 8:50 p.m. on 06/11/2018. There is concurrence of this report with the preliminary findings. A
[2018-06-12] MEDS: Omega-3-Acid Ethyl Esters 1 GM Cap PO SCH (17:09)
[2018-06-13] MEDS: Dextrose 5%/0.9% NS 1,000 ML IV SCH ×7 (00:15→23:24)
[2018-06-13 07:18] LABS: ALBUMIN 3.1 g/dL (3.5-5.0); ALT/SGPT 29 U/L (21-72); AST/SGOT 21 U/L (17-59); BLOOD UREA NITROGEN 5 mg/dl (9-20); CALCIUM 7.8 mg/dL (8.4-10.2); GFR NON-AFRICAN AMERICAN > 60; HDL CHOLESTEROL 15 MG/DL (30-70); LDL CHOLESTEROL < 30 mg/dL (0-129)
[2018-06-13] MEDS ORDERED: Insulin Regular 100 units/ml IVP ONE (08:24)
[2018-06-13] MEDS: Omega-3-Acid Ethyl Esters 1 GM Cap PO SCH ×2 (09:00→17:53)
[2018-06-13] MEDS: Enoxaparin 40 mg Syringe SC SCH (09:01)
[2018-06-13 09:03] LABS: HEMOGLOBIN 12.5 g/dL (12.0-18.0); MEAN CELL VOLUME 77.5 fl (80.0-94.0); MEAN CORPUSCULAR HEMOGLOBIN 26.1 pg (27.0-31.0); MEAN CORPUSCULAR HGB CONC 33.7 g/dL (33.0-37.0); RBC 4.8 Mil/uL (4.40-5.90); RED CELL DISTRIBUTION WIDTH 14.8 % (11.5-14.5); WHITE BLOOD COUNT 6.5 K/uL (4.8-10.8)
--- NOTE | 2018-06-13 12:35 | CP.PCM.PN ---
Objective - Vital Signs/Intake and Output Vital Signs (last 24 hours): Temp Pulse Resp BP Pulse Ox 98.1 F 109 H 19 134/76 95 06/13/18 08:08 06/13/18 08:08 06/13/18 08:08 06/13/18 08:08 06/13/18 08:08 - Medications Medications: Current Medications Acetaminophen (Tylenol 325mg Tab) 650 mg PO Q6 PRN PRN Reason: Pain, Mild (1-3) Enoxaparin Sodium (Lovenox) 40 mg SC DAILY [facility]; Protocol Last Admin: 06/13/18 09:01 Dose: 40 mg Fenofibrate (Tricor) 145 mg PO HS [facility] Last Admin: 06/12/18 21:51 Dose: 145 mg Dextrose/Sodium Chloride (Dextrose 5%/0.9% Ns 1000 Ml) 1,000 mls @ 250 mls/hr IV .Q4H [facility] Stop: 06/14/18 08:33 Last Admin: 06/13/18 11:28 Dose: 250 mls/hr Ketorolac Tromethamine (Toradol) 30 mg IVP Q6 PRN PRN Reason: Pain, moderate (4-7) Last Admin: 06/13/18 11:43 Dose: 30 mg Morphine Sulfate (Morphine) 4 mg IVP Q6 PRN PRN Reason: Pain, severe (8-10) Last Admin: 06/12/18 11:37 Dose: 4 mg Vbyka-2-Nrie Ethyl Esters (Lovaza) 1 gm PO BID [facility] Last Admin: 06/13/18 09:00 Dose: 1 gm Ondansetron HCl (Zofran Inj) 4 mg IVP Q6 PRN PRN Reason: Nausea/Vomiting - Labs Labs: 06/13/18 08:53 06/13/18 05:25 PT 11.2 Seconds (9.8-13.1) 06/11/18 15:10 INR 1.0 06/11/18 15:10 APTT 32.6 Seconds (25.6-37.1) 06/11/18 15:10
[2018-06-13 13:46] LABS: BLOOD UREA NITROGEN 4 mg/dl (9-20); CALCIUM 8.4 mg/dL (8.4-10.2); GFR NON-AFRICAN AMERICAN > 60; HDL CHOLESTEROL 14 MG/DL (30-70); LIPASE 451 U/L (23-300)
[2018-06-13 14:03] LABS: LDL CHOLESTEROL < 30 mg/dL (0-129)
[2018-06-13 15:53] VITALS: O2SAT 97
[2018-06-13] MEDS ORDERED: Sodium Chloride 0.9% 500 ML IV ONE (16:30)
--- NOTE | 2018-06-13 17:40 | CP.PCM.DIS ---
Addendum entered and electronically signed by Joe Dick MD 06/14/18 11:06: Addendum entered and electronically signed by Isaias Kern MD 06/14/18 10:45: Patient was seen at bedside this morning slept well. Denies any pain currently. Ate breakfast with normal appetitie without any pain. Has some bloating but no pain. Understands importance of following up in the clinic and taking the medication. Gen: NAD CVS: S1s2 no M/R/G Resp: CTAB no W/R/R Neuro: Motor and sensory grossly intact Abd: Soft, NTND, normal bowl sounds A/P Stable for discharge, tolerating diet well, denies pain. F/U with PMD in 1-2 days. Original Note: <Silvia Gibbs - Last Filed: 06/13/18 18:08> Provider - Provider Date of Admission: 06/11/18 18:35 Attending physician: Joe Dick MD Time Spent in preparation of Discharge (in minutes): 60 Diagnosis - Discharge Diagnosis (1) Pancreatitis Status: Resolved (2) High blood triglycerides Status: Acute (3) Abdominal pain Status: Acute (4) Leukocytosis Status: Resolved Hospital Course - Lab Results Lab Results: Most Recent Lab Values WBC 6.5 K/uL (4.8-10.8) 06/13/18 08:53 RBC 4.80 Mil/uL (4.40-5.90) 06/13/18 08:53 Hgb 12.5 g/dL (12.0-18.0) D 06/13/18 08:53 Hct 37.2 % (35.0-51.0) 06/13/18 08:53 MCV 77.5 fl (80.0-94.0) L 06/13/18 08:53 MCH 26.1 pg (27.0-31.0) L 06/13/18 08:53 MCHC 33.7 g/dL (33.0-37.0) 06/13/18 08:53 RDW 14.8 % (11.5-14.5) H 06/13/18 08:53 Plt Count 164 K/uL (130-400) 06/13/18 08:53 MPV 8.5 fl (7.2-11.7) 06/11/18 15:10 Neut % (Auto) 85.8 % (50.0-75.0) H 06/11/18 15:10 Lymph % (Auto) 5.6 % (20.0-40.0) L 06/11/18 15:10 Robertson % (Auto) 7.6 % (0.0-10.0) 06/11/18 15:10 Eos % (Auto) 0.2 % (0.0-4.0) 06/11/18 15:10 Baso % (Auto) 0.8 % (0.0-2.0) 06/11/18 15:10 Neut # (Auto) 11.1 K/uL (1.8-7.0) H 06/11/18 15:10 Lymph # (Auto) 0.7 K/uL (1.0-4.3) L 06/11/18 15:10 Robertson # (Auto) 1.0 K/uL (0.0-0.8) H 06/11/18 15:10 Eos # (Auto) 0.0 K/uL (0.0-0.7) 06/11/18 15:10 Baso # (Auto) 0.1 K/uL (0.0-0.2) 06/11/18 15:10 Neutrophils % (Manual) 80 % (42-75) H 06/11/18 15:10 Band Neutrophils % 4 % (0-2) H 06/11/18 15:10 Lymphocytes % (Manual) 9 % (20-50) L 06/11/18 15:10 Monocytes % (Manual) 6 % (0-10) 06/11/18 15:10 Eosinophils % (Manual) 1 % (0-7) 06/11/18 15:10 Platelet Estimate Normal (NORMAL) 06/11/18 15:10 Large Platelets Present 06/11/18 15:10 Hypochromasia (manual) Slight 06/11/18 15:10 Microcytosis (manual) Slight 06/11/18 15:10 PT 11.2 Seconds (9.8-13.1) 06/11/18 15:10 INR 1.0 06/11/18 15:10 APTT 32.6 Seconds (25.6-37.1) 06/11/18 15:10 Sodium 141 mmol/l (132-148) 06/13/18 12:59 Potassium 3.6 MMOL/L (3.6-5.0) 06/13/18 12:59 Chloride 108 mmol/L (98-107) H 06/13/18 12:59 Carbon Dioxide 25 mmol/L (22-30) 06/13/18 12:59 Anion Gap 12 (10-20) 06/13/18 12:59 BUN 4 mg/dl (9-20) L 06/13/18 12:59 Creatinine 0.8 mg/dl (0.8-1.5) 06/13/18 12:59 Est GFR ( Amer) > 60 06/13/18 12:59 Est GFR (Non-Af Amer) > 60 06/13/18 12:59 POC Glucose (mg/dL) 124 mg/dL (65-110) H 06/13/18 16:05 Random Glucose 94 mg/dL (75-110) 06/13/18 12:59 Calcium 8.4 mg/dL (8.4-10.2) 06/13/18 12:59 Total Bilirubin 0.9 mg/dl (0.2-1.3) 06/13/18 05:25 AST 21 U/L (17-59) 06/13/18 05:25 ALT 29 U/L (21-72) 06/13/18 05:25 Alkaline Phosphatase 51 U/L (38-126) 06/13/18 05:25 Total Creatine Kinase 175 U/L (55-170) H 06/11/18 19:19 Total Protein 6.1 G/DL (6.3-8.2) L 06/13/18 05:25 Albumin 3.1 g/dL (3.5-5.0) L 06/13/18 05:25 Globulin 3.0 gm/dL (2.2-3.9) 06/13/18 05:25 Albumin/Globulin Ratio 1.0 (1.0-2.1) 06/13/18 05:25 Triglycerides 733 mg/DL (0-149) H 06/13/18 12:59 Cholesterol 212 mg/dL (0-199) H 06/13/18 12:59 LDL Cholesterol Direct < 30 mg/dL (0-129) 06/13/18 12:59 HDL Cholesterol 14 MG/DL (30-70) L 06/13/18 12:59 Lipase 451 U/L (23-300) H 06/13/18 12:59 Urine Opiates Screen Negative (NEGATIVE) 06/11/18 19:18 Urine Methadone Screen Negative (NEGATIVE) 06/11/18 19:18 Ur Barbiturates Screen Negative (NEGATIVE) 06/11/18 19:18 Ur Phencyclidine Scrn Negative (NEGATIVE) 06/11/18 19:18 Ur Amphetamines Screen Negative (NEGATIVE) 06/11/18 19:18 U Benzodiazepines Scrn Negative (NEGATIVE) 06/11/18 19:18 U Oth Cocaine Metabols Negative (NEGATIVE) 06/11/18 19:18 U Cannabinoids Screen Negative (NEGATIVE) 06/11/18 19:18 Alcohol, Quantitative < 10 mg/dl (0-10) 06/11/18 19:19 - Hospital Course Hospital Course: 27 y/o male with a PMHx of hypertriglyceridemia was admitted for acute pancreatitis secondary to elevated triglycerides. Patient was kept NPO, vitals were monitored, patient was given fluids, started on pain medication, and treated with fenofibrate as well as Lovaza. Lipases were trending down. Last triglyceride levels were 733. Regular diet was restarted today, and stated his abdominal pain is much more improved. 1) Pancreatitis due to hypertriglyceridemia (Acute, resolved) -Due to elevated triglycerides. -Patient counseled on importance of continuing fenofibrate, and Lovaza. Patient also counseled on the importance of weight loss, complete alcohol abstinence, and diet. 2) Abdominal Pain due to Pancreatitis (Acute, resolved) 3) Hypertriglyceridemia (Acute) 4)Leukocytosis (Acute, resolved) Discharge Exam - Head Exam Head Exam: ATRAUMATIC, NORMOCEPHALIC - Neck Exam Neck exam: Full Rom - Respiratory Exam Respiratory Exam: Clear to PA & Lateral - Cardiovascular Exam Cardiovascular Exam: +S1, +S2 - GI/Abdominal Exam Additional comments: soft, minimal epigastric tenderness, no guarding, no rigidity - Back Exam Additional comments: calves nontender, distal pulses palpable - Neurological Exam Neurological exam: Alert, Oriented x3 - Psychiatric Exam Psychiatric exam: Normal Affect, Normal Mood - Skin Skin Exam: Dry, Intact Discharge Plan - Discharge Medications Prescriptions: Fenofibrate [Tricor] 145 mg PO HS #30 tab [id number] Ethyl Esters 1 GM [Lovaza] 1 gm PO BID #60 sgl - Follow Up Plan Condition: STABLE Disposition: HOME/ ROUTINE Patient education suggested?: Yes <Alaina Brumfield Lynette - Last Filed: 06/13/18 18:36> Provider - Provider Date of Admission: 06/11/18 18:35 Attending physician: Joe Dick MD Hospital Course - Lab Results Lab Results: Most Recent Lab Values WBC 6.5 K/uL (4.8-10.8) 06/13/18 08:53 RBC 4.80 Mil/uL (4.40-5.90) 06/13/18 08:53 Hgb 12.5 g/dL (12.0-18.0) D 06/13/18 08:53 Hct 37.2 % (35.0-51.0) 06/13/18 08:53 MCV 77.5 fl (80.0-94.0) L 06/13/18 08:53 MCH 26.1 pg (27.0-31.0) L 06/13/18 08:53 MCHC 33.7 g/dL (33.0-37.0) 06/13/18 08:53 RDW 14.8 % (11.5-14.5) H 06/13/18 08:53 Plt Count 164 K/uL (130-400) 06/13/18 08:53 MPV 8.5 fl (7.2-11.7) 06/11/18 15:10 Neut % (Auto) 85.8 % (50.0-75.0) H 06/11/18 15:10 Lymph % (Auto) 5.6 % (20.0-40.0) L 06/11/18 15:10 Robertson % (Auto) 7.6 % (0.0-10.0) 06/11/18 15:10 Eos % (Auto) 0.2 % (0.0-4.0) 06/11/18 15:10 Baso % (Auto) 0.8 % (0.0-2.0) 06/11/18 15:10 Neut # (Auto) 11.1 K/uL (1.8-7.0) H 06/11/18 15:10 Lymph # (Auto) 0.7 K/uL (1.0-4.3) L 06/11/18 15:10 Robertson # (Auto) 1.0 K/uL (0.0-0.8) H 06/11/18 15:10 Eos # (Auto) 0.0 K/uL (0.0-0.7) 06/11/18 15:10 Baso # (Auto) 0.1 K/uL (0.0-0.2) 06/11/18 15:10 Neutrophils % (Manual) 80 % (42-75) H 06/11/18 15:10 Band Neutrophils % 4 % (0-2) H 06/11/18 15:10 Lymphocytes % (Manual) 9 % (20-50) L 06/11/18 15:10 Monocytes % (Manual) 6 % (0-10) 06/11/18 15:10 Eosinophils % (Manual) 1 % (0-7) 06/11/18 15:10 Platelet Estimate Normal (NORMAL) 06/11/18 15:10 Large Platelets Present 06/11/18 15:10 Hypochromasia (manual) Slight 06/11/18 15:10 Microcytosis (manual) Slight 06/11/18 15:10 PT 11.2 Seconds (9.8-13.1) 06/11/18 15:10 INR 1.0 06/11/18 15:10 APTT 32.6 Seconds (25.6-37.1) 06/11/18 15:10 Sodium 141 mmol/l (132-148) 06/13/18 12:59 Potassium 3.6 MMOL/L (3.6-5.0) 06/13/18 12:59 Chloride 108 mmol/L (98-107) H 06/13/18 12:59 Carbon Dioxide 25 mmol/L (22-30) 06/13/18 12:59 Anion Gap 12 (10-20) 06/13/18 12:59 BUN 4 mg/dl (9-20) L 06/13/18 12:59 Creatinine 0.8 mg/dl (0.8-1.5) 06/13/18 12:59 Est GFR ( Amer) > 60 06/13/18 12:59 Est GFR (Non-Af Amer) > 60 06/13/18 12:59 POC Glucose (mg/dL) 124 mg/dL (65-110) H 06/13/18 16:05 Random Glucose 94 mg/dL (75-110) 06/13/18 12:59 Calcium 8.4 mg/dL (8.4-10.2) 06/13/18 12:59 Total Bilirubin 0.9 mg/dl (0.2-1.3) 06/13/18 05:25 AST 21 U/L (17-59) 06/13/18 05:25 ALT 29 U/L (21-72) 06/13/18 05:25 Alkaline Phosphatase 51 U/L (38-126) 06/13/18 05:25 Total Creatine Kinase 175 U/L (55-170) H 06/11/18 19:19 Total Protein 6.1 G/DL (6.3-8.2) L 06/13/18 05:25 Albumin 3.1 g/dL (3.5-5.0) L 06/13/18 05:25 Globulin 3.0 gm/dL (2.2-3.9) 06/13/18 05:25 Albumin/Globulin Ratio 1.0 (1.0-2.1) 06/13/18 05:25 Triglycerides 733 mg/DL (0-149) H 06/13/18 12:59 Cholesterol 212 mg/dL (0-199) H 06/13/18 12:59 LDL Cholesterol Direct < 30 mg/dL (0-129) 06/13/18 12:59 HDL Cholesterol 14 MG/DL (30-70) L 06/13/18 12:59 Lipase 451 U/L (23-300) H 06/13/18 12:59 Urine Opiates Screen Negative (NEGATIVE) 06/11/18 19:18 Urine Methadone Screen Negative (NEGATIVE) 06/11/18 19:18 Ur Barbiturates Screen Negative (NEGATIVE) 06/11/18 19:18 Ur Phencyclidine Scrn Negative (NEGATIVE) 06/11/18 19:18 Ur Amphetamines Screen Negative (NEGATIVE) 06/11/18 19:18 U Benzodiazepines Scrn Negative (NEGATIVE) 06/11/18 19:18 U Oth Cocaine Metabols Negative (NEGATIVE) 06/11/18 19:18 U Cannabinoids Screen Negative (NEGATIVE) 06/11/18 19:18 Alcohol, Quantitative < 10 mg/dl (0-10) 06/11/18 19:19 Attending/Attestation - Attestation I have personally seen and examined this patient.: Yes I have fully participated in the care of the patient.: Yes I have reviewed all pertinent clinical information, including history, physical exam and plan: Yes
[2018-06-13] MEDS ORDERED: Simethicone 80 mg Chewtab PO STA (18:56)
[2018-06-13 23:59] VITALS: RESP 20
[2018-06-14] MEDS: Dextrose 5%/0.9% NS 1,000 ML IV SCH ×3 (00:56→04:45)
[2018-06-14 08:23] VITALS: BP 117/65; PULSE 89; TEMP 98.1
[2018-06-14] MEDS: Enoxaparin 40 mg Syringe SC SCH (08:27)
[2018-06-14] MEDS: Omega-3-Acid Ethyl Esters 1 GM Cap PO SCH (08:27)
[2018-06-14 08:56] LABS: ALBUMIN 3.3 g/dL (3.5-5.0); ALT/SGPT 29 U/L (21-72); AST/SGOT 24 U/L (17-59); BLOOD UREA NITROGEN 6 mg/dl (9-20); CALCIUM 8.4 mg/dL (8.4-10.2); GFR NON-AFRICAN AMERICAN > 60; HDL CHOLESTEROL 13 MG/DL (30-70); LIPASE 218 U/L (23-300)
[2018-06-14 08:57] LABS: LDL CHOLESTEROL 35 mg/dL (0-129)
== END 2018-06-14 11:18 | disposition home or self-care (01) | DRG 204 ==
LOC: H.ER 14:15 → H.ERHOLD 18:35 → H.MEDSURG1 20:30
DX: K85.90 Acute pancreatitis without necrosis or infection, unspecified (principal); Z83.3 Family history of diabetes mellitus; Z87.891 Personal history of nicotine dependence; E78.00 Pure hypercholesterolemia, unspecified; E66.9 Obesity, unspecified; Z68.34 Body mass index [BMI] 34.0-34.9, adult; R00.0 Tachycardia, unspecified; E78.1 Pure hyperglyceridemia; D72.829 Elevated white blood cell count, unspecified